=== PATIENT | female | born 1965 | race Caucasian/White ===

== ENCOUNTER 2025-04-08 11:09 | Outpatient (AMB) | payer OTHER, SELFPAY ==
--- OUTSIDE RECORDS SUMMARY | 2025-04-08 12:42 | XMS_ITS | Clinical Summary ---
Author Organization [facility] Address [address] [place] [address] Care Team Providers Care Vision Specialist Name Role Phone Jairo Patel DO Primary Care Provider [phone] Allergies Active Allergy Reactions Criticality Noted Date Comments Hydromorphone 06/17/2024 Nitrofurantoin 06/17/2024 Morphine 06/17/2024 Penicillins 06/17/2024 Oxycodone-Acetaminophen 06/17/2024 Medications Medication Sig Dispensed Refills Start Date End Date Status aspirin EC 81 MG tablet Take 1 tablet (81 mg total) by mouth daily. 0 Active loratadine (CLARITIN) 10 MG tablet Take 1 tablet (10 mg total) by mouth daily. 0 Active Ubrogepant (Ubrelvy) 100 MG TABS Take by mouth. 0 Active atorvastatin (LIPITOR) tablet 10 mg Take 1 tablet (10 mg total) by mouth every evening. 0 Active alendronate (FOSAMAX) tablet 70 mg Take 1 tablet (70 mg total) by mouth every 7 days. Take with water on empty stomach/Nothing by mouth and do not lie down for next 30 minutes 0 Active vitamin B-12 (CYANOCOBALAMIN) 100 MCG tablet Take 0.5 tablets (50 mcg total) by mouth daily. 0 Active senna (SENOKOT) 8.6 MG tablet Take 1 tablet by mouth daily. 0 Active baclofen (LIORESAL) 10 MG tablet Take 1 tablet (10 mg total) by mouth 2 (two) times a day. 0 Active Calcium Citrate (CITRACAL PO) Take by mouth. 0 Active erenumab-aooe (Aimovig) SOAJ Inject under the skin once. 0 Active Active Problems No known active problems Social History Tobacco Use Types Packs/Day Years Used Date Smoking Tobacco: Former Cigarettes Smokeless Tobacco: Never Tobacco Cessation:Counseling Given: Not Answered Alcohol Use Standard Drinks/Week Comments Yes 0 (1 standard drink = 0.6 oz pur e alcohol) 4oz pascual a day Sex and Gender Information Value Date Recorded Sex Assigned at Female 05/17/2022 4:16 PM EDT Gender Identity Not on file Sexual Orientation Not on file Job Start Date Occupation Industry Not on file Not on file Not on file Last Filed Vital Signs Vital Sign Reading Time Taken Comments Blood Pressure 109/62 06/17/2024 2:01 PM EDT Pulse 75 06/17/2024 2:01 PM EDT Temperature 37.4 C (99.4 F) 06/17/2024 2:01 PM EDT Respiratory Rate - - Oxygen Saturation 99% 06/17/2024 2:01 PM EDT Inhaled Oxygen Concentration - - Weight 43.1 kg (95 lb) 06/17/2024 2:01 PM EDT Height 167.6 cm (5' 6 ) 06/17/2024 2:01 PM EDT Body Mass Index 15.33 06/17/2024 2:01 PM EDT Plan of Treatment Health Maintenance Due Date Last Done Comments Hepatitis B Vaccines (1 of 3 - 3-dose series) 1966 Hepatitis C Screening 1966 COVID-19 Vaccine (#1) 06/23/1967 Depression Screening 1978 Preventative Health Evaluation 1984 DTap / Tdap / Td (1 - Tdap) 1985 Cervical Cancer Screening (P ap Smear) 12/22/1987 Colon Cancer Screening (Colonoscopy) 12/22/2011 Breast Cancer Screening (Mammogram) 2016 Shingrix-Zoster Vaccine (1 of 2) 2016 Influenza Vaccine (#1) 2025 Pneumococcal Vaccine Aged Out No long er eligible based on patient's age to complete this topic RSV Ped < 20 months Aged Out No longe r eligible based on patient's age to complete this topic Care Teams Vision Specialist Relationship Specialty Start Date End Date Jairo Patel DO [address] [place] [address] [place] [address] PCP - General Internal Medicine 05/17/22
--- OUTSIDE RECORDS SUMMARY | 2025-04-08 12:42 | XMS_ITS | Encounter Summary ---
Author Organization [employer] [facility] Address [address] [place] [address] Care Team Providers Care Trauma Doctor Name Role Phone Jairo Patel DO Primary Care Provider [phone] Encounter Details Date Type Department Care Team (Late st Contact Info) Description 02/10/2025 Lab Requisition [facility] - Main Lab [address] [facility] [place] [address] Angel Frank MD [address] [place], [place] [phone] Urinary tract infection, site not specified; Overactive bladder Social History Tobacco Use Types Packs/Day Years [...] on file documented as of this encounter Plan of Treatment Not on file documented as of this encounter Procedures Procedure Name Priority Date/Time Associated Diagnosis Comments CULTURE URINE Routine 02/10/2025 12:00 AM EDT Urinary tract infection, site not specified Overactive bladder documented in this encounter Results * Culture urine (02/10/2025 12:00 AM EDT) Culture, Urine No growth 02/11/2025 10:59 AM EDT [facility] Urine Urine specimen obtained by clean catch procedure / Unknown 02/10/2025 02/10/2025 1:24 PM EDT us Angel Frank MD LAB MICROBIOLOGY - GENERAL ORDERABLES Final [facility] [address] [place] [address], documented in this encounter Visit Diagnoses Diagnosis Urinary tract infection, site not specified Overactive bladder Hypertonicity of bladder documented in this encounter Care Teams Trauma Doctor Relationship Specialty Start Date End Date Jairo Patel DO [address] [place] [phone] PCP - General Internal Medicine 03/27/13 documented as of this encounter
--- OUTSIDE RECORDS SUMMARY | 2025-04-08 12:42 | XMS_ITS | Clinical Summary ---
Author Organization [facility] Address [address] [place] [address] Care Team Providers Care Technician Inventory Specialist Name Role Phone Jairo Patel Primary Care Provider [phone] Allergies Active Allergy Reactions Criticality Noted Date Comments Hydromorphone Unknown 08/03/2023 Lactose Unknown 08/03/2023 Nitrofurantoin Unknown 08/03/2023 Oxycodone-Acetaminophen Unknown 08/03/2023 Penicillins Unknown 08/03/2023 Medications aspirin 81 mg EC tablet Take 1 tablet by mouth once a day. Active propranoloL (INDERAL) 10 mg tablet Take 5 mg by mouth 2 times a day. Active atorvastatin (LIPITOR) 10 mg tablet Take 5 mg by mouth nightly. 3 Active alendronate (FOSAMAX) 70 mg tablet Take 70 mg by mouth once a week. 3 Active cyanocobalamin (vitamin B-12) 500 mcg tablet Take 500 mcg by mouth once a day. 3 Active butalbital-acetamin ophen-caffeine (FIORICET) 50-325-40 mg tablet Take 1 tablet by mouth as needed for headache or migraine. Active Nurtec ODT 75 mg tablet,disintegrati ng disintegrating tablet Dissolve 75 mg in the mouth every other day. Active senna (Senna Lax) 8.6 mg tablet Take 100 mg by mouth every other day. 3 Active calcium citrate/vitamin D3 (CITRACAL REGULAR ORAL) Take 650 mg by mouth once a day. 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 Social History Tobacco Use Types Packs/Day Years Used Date Smoking Tobacco: Former Cigarettes Smokeless Tobacco: Never Tobacco Cessation:Counseling Given: Not Answered Alcohol Use Standard Drinks/Week Comments Yes 0 (1 standard drink = 0.6 oz pur e alcohol) Comments Unknown Sex and Gender Information Value Date Recorded Sex Assigned at Not on file Legal Sex Female 11:29 AM EDT Gender Identity Not on file Sexual Orientation Not on file Last Filed Vital Signs Vital Sign Reading Time Taken Comments Blood Pressure 118/75 08/03/2023 9:34 AM EST Pulse 88 08/03/2023 9:34 AM EST Temperature 36.2 C (97.2 F) 08/03/2023 9:34 AM EST Respiratory Rate 16 08/03/2023 9:34 AM EST Oxygen Saturation - - Inhaled Oxygen Concentration - - Weight - - Height 167.6 cm (5' 6 ) 08/03/2023 9:34 AM EST Body Mass Index - - Plan of Treatment Health Maintenance Due Date Last Done Comments Cervical Cancer Screening 1966 Cologuard 1966 Colon Cancer Screening 1966 Colonoscopy 1966 FOBT / Fit Test 1966 HIV Screening 1966 HPV and Pap Smear 1966 Hepatitis C Screening 1966 Pap Smear 1966 Sigmoidoscopy 1966 Hepatitis B Vaccines (1 of 3 - 19+ 3-dose series) 1985 DTaP,Tdap,and Td Vaccines (1 - Tdap) [address] Lung Cancer Screening (Baseline) 2016 Pneumococcal Vaccine: 50+ Ye ars (1 of 1 - PCV) 2016 Zoster Vaccines (2 of 2) 06/25/2023 04/30/2023 COVID-19 Vaccine (2 - 2023-2 5 season) 2024 10/08/2020 Alcohol/Substance Use Screening 08/21/2024 Depression Screening and Follow-Up 08/21/2024 Social Drivers of Health Jessica ual Screening 08/21/2024 Influenza Vaccine (#1) 2025 3, 06/14/2022, 08/19/2021, Additional history exists RSV Vaccine (60+ years old a nd patients) (1 - 1-dose 75+ series) 2041 Insurance [facility] OUT OF STATE PPO MEDICARE Care Teams Technician Inventory Specialist Relationship Specialty Start Date End Date Jairo Patel [address] [place] [phone] PCP - General Internal Medicine 06/08/23
== END 2025-04-08 11:13 | disposition home or self-care (01) ==
LOC: HO.HMGAL 11:09
PROVIDERS: Visit Provider Registered Nurse Emergency
DX: J30.89 Other allergic rhinitis (principal)
CPT/HCPCS: 95117; 95165

== ENCOUNTER 2025-05-07 13:29 | Outpatient (AMB) | payer OTHER, BC, SELFPAY ==
--- OUTSIDE RECORDS SUMMARY | 2025-05-07 17:19 | XMS_ITS | Clinical Summary ---
Author Organization [facility] Address [address] [place] [address] Care Team Providers Care Rack Washer Name Role Phone Jairo Patel Primary Care Provider [phone] Allergies Active Allergy Reactions Criticality Noted Date [...] Zoster Vaccines (2 of 2) 06/25/2023 04/30/2023 Alcohol/Substance Use Screening 08/21/2024 Depression Screening and Follow-Up 08/21/2024 Social Drivers of Health Jessica ual Screening 08/21/2024 COVID-19 Vaccine (2 - 2024-2 6 season) 2025 10/08/2020 Influenza Vaccine (#1) 2025 3, 06/14/2022, 08/19/2021, Additional history exists RSV Vaccine (60+ years old a nd patients) (1 - 1-dose 75+ series) 2041 Insurance [facility] OUT OF STATE O MEDICARE Care Teams Rack Washer Relationship Specialty Start Date End Date Jairo Patel [address] [place] [id number] PCP - General Internal Medicine 06/08/23
--- OUTSIDE RECORDS SUMMARY | 2025-05-07 17:20 | XMS_ITS | Clinical Summary ---
Author Organization [facility] Address [address] [place] [address] Care Team Providers Care Channel Program Manager Name Role Phone Jairo Patel DO Primary Care Provider [phone] Allergies Active Allergy Reactions Criticality Noted Date [...] age to complete this topic Care Teams Channel Program Manager Relationship Specialty Start Date End Date Jairo Patel DO [address] [place] [address] [place] [address] PCP - General Internal Medicine 05/17/22
== END 2025-05-07 13:30 | disposition home or self-care (01) ==
LOC: HO.HMGAL 13:29
PROVIDERS: Visit Provider Registered Nurse Emergency
DX: J30.89 Other allergic rhinitis (principal)
CPT/HCPCS: 95117; 95165

== ENCOUNTER 2025-06-04 12:05 | Outpatient (AMB) | payer BC, MEDICARE, SELFPAY ==
--- OUTSIDE RECORDS SUMMARY | 2024-06-17 13:42 | XMS_ITS | Encounter Summary ---
Author Organization [facility] Address [address] [place] [address] Care Team Providers Care Tennis Centre Manager Name Role Phone Jairo Patel DO Primary Care Provider [phone] Encounter Details Date Type Department Care Team (Late st Contact Info) Description 06/17/2024 1:42 PM EDT Hospital Encounter TH HISTORIC ENCOUNTERS EASTERN CONVERSION ONLY Justus Byrnes MD [address] [place] [address] Social History Tobacco Use Types Packs/Day Years [...] [facility]. Patient [...] significant anemia but she was told [facility] to take multivitamin because she may have [...] documented in this encounter Plan of Treatment Upcoming Encounters Date Type Department Care Team (Late st Contact Info) Description 06/17/2025 1:45 PM EDT Office Visit [facility] Hematology Oncology [address] [place] [phone] Justus Byrnes MD [address] [place] [address] documented as of this encounter Procedures Procedure Name Priority Date/Time Associated Diagnosis Comments ..MISCELLANEOUS REFERENCE LAB TEST 06/17/2024 ..MISCELLANEOUS REFERENCE LAB TEST 06/17/2024 ..MISCELLANEOUS REFERENCE LAB TEST 06/17/2024 ..MISCELLANEOUS REFERENCE LAB TEST 06/17/2024 documented in this encounter Results * Miscellaneous reference lab test (06/17/2024) Provider Onbase MD LAB BLOOD ORDERABLES Final Re sult * Miscellaneous reference lab test (06/17/2024) Provider Onbase MD LAB BLOOD ORDERABLES Final Re sult * Miscellaneous reference lab test (06/17/2024) Provider Onbase MD LAB BLOOD ORDERABLES Final Re sult * Miscellaneous reference lab test (06/17/2024) Provider Onbase MD LAB BLOOD ORDERABLES Final Re sult documented in this encounter Visit Diagnoses Not on filedocumented in this encounter Care Teams Tennis Centre Manager Relationship Specialty Start Date End Date Jairo Patel DO [address] [place] [phone] PCP - General Internal Medicine 03/27/13 documented as of this encounter
--- OUTSIDE RECORDS SUMMARY | 2025-06-04 15:18 | XMS_ITS | Clinical Summary ---
Author Organization [facility] Address [address] [place] [address] Care Team Providers Care Director Web Name Role Phone Jairo Patel Primary Care Provider [phone] Allergies Active Allergy Reactions Criticality Noted Date [...] (1 - 1-dose 75+ series) 2041 Insurance [facility] OUT OF STATE O MEDICARE Care Teams Director Web Relationship Specialty Start Date End Date Jairo Patel [address] [place] [phone] PCP - General Internal Medicine 06/08/23
--- OUTSIDE RECORDS SUMMARY | 2025-06-04 15:18 | XMS_ITS | Encounter Summary ---
Author Organization [facility] Address [address] [place] [address] Care Team Providers Care Speech Clinician Name Role Phone Jairo Patel DO Primary Care Provider [phone] Encounter Details Date Type Department Care Team (Late Contact Info) Description 05/27/2025 Lab Requisition [facility] - Main Lab [address] [facility] [place] [phone] Dangelo Shields MD [address] [place] [phone] Benign essential microscopic hematuria Social History Tobacco Use Types Packs/Day Years [...] as of this encounter Plan of Treatment Upcoming Encounters Date Type Department Care Team (Late Contact Info) Description 06/17/2025 1:45 PM EDT Office Visit [facility] Hematology Oncology [address] [place] [phone] Justus Byrnes MD [address] [place] [address] Pending Results Name Type Priority Associated Diagnoses Date /Time Non-gynecologic cytology Pathology and Cytology Routine Benign essential microscopic hematuria 05/20/2025 12:00 AM EDT documented as of this encounter Visit Diagnoses Diagnosis Benign essential microscopic hematuria documented in this encounter Care Teams Speech Clinician Relationship Specialty Start Date End Date Jairo Patel DO [address] [place] [phone] PCP - General Internal Medicine 03/27/13 documented as of this encounter
--- OUTSIDE RECORDS SUMMARY | 2025-06-04 15:18 | XMS_ITS | Clinical Summary ---
Author Organization [facility] Address [address] [place] [address] Care Team Providers Care Mosaic Tile Maker Name Role Phone Jairo Patel DO Primary Care Provider [phone] Allergies Active Allergy Reactions Criticality Noted Date [...] age to complete this topic Care Teams Mosaic Tile Maker Relationship Specialty Start Date End Date Jairo Patel DO [address] [place] [address] [place] [address] PCP - General Internal Medicine 05/17/22
--- OUTSIDE RECORDS SUMMARY | 2025-06-04 15:18 | XMS_ITS | Encounter Summary ---
Author Organization [employer] [facility] Address [address] [place] [address] Care Team Providers Care Safety Relief Valve Technician Name Role Phone Jairo Patel DO Primary Care Provider [phone] Encounter Details Date Type Department Care Team (Late Contact Info) Description 02/10/2025 Lab Requisition [facility] - Main Lab [address] [facility] [place] [phone] Angel Frank MD [address] [place] [address] Urinary tract infection, site not specified; Overactive [...] Description 06/17/2025 1:45 PM EDT Office Visit [facility] Hematology Oncology [address] [place] [phone] Justus Byrnes MD [address] [place] [address] documented as of this encounter Procedures Procedure Name Priority Date/Time Associated Diagnosis Comments CULTURE URINE Routine 02/10/2025 12:00 AM EDT Urinary tract infection, site not specified Overactive bladder documented in this encounter Results * Culture urine (02/10/2025 12:00 AM EDT) Culture, Urine No growth 02/11/2025 10:59 AM EDT [facility] Urine Urine specimen obtained by clean catch procedure / Unknown 02/10/2025 02/10/2025 1:24 PM EDT us Angel Frank MD LAB MICROBIOLOGY - GENERAL ORDERABLES Final Result [facility] [address] [place] [address], documented in this encounter Visit Diagnoses Diagnosis Urinary tract infection, site not specified Overactive bladder Hypertonicity of bladder documented in this encounter Care Teams Safety Relief Valve Technician Relationship Specialty Start Date End Date Jairo Patel DO [address] [place] [phone] PCP - General Internal Medicine 03/27/13 documented as of this encounter
--- OUTSIDE RECORDS SUMMARY | 2025-06-04 15:18 | XMS_ITS | Clinical Summary ---
Author Organization [facility] [place] [address] Phone Care Team Providers Care Tile Power Shear Operator Name Role Phone Jairo Patel DO Primary Care Provider [phone] Encounters Date Type Department Care Team Description 05/27/2025 Lab Requisition [facility] - Main Lab [address] [facility] [place] [address] Dangelo Shields MD Benign essential microscopic hematuria from Last 3 Months Social History Tobacco Use Types Packs/Day Years Used Date Smoking Tobacco: Former Smokeless Tobacco: Never Alcohol Use Standard Drinks/Week Comments Yes 0 (1 standard drink = 0.6 oz pur e alcohol) Comments Unknown Sex and Gender Information Value Date Recorded Sex Assigned at Not on file Legal Sex Female 7:00 AM EST Gender Identity Not on file Sexual Orientation Not on file Obstetrics History Last Filed Vital Signs Vital Sign Reading [...] 06/17/2024 2:01 PM EDT Plan of Treatment Upcoming Encounters Date Type Department Care Team (Late st Contact Info) Description 06/17/2025 1:45 PM EDT Office Visit [facility] [address] [place] [address] Justus Byrnes MD [address] [place] [address] Health Maintenance Due Date Last Done Comments Breast Cancer Screening 1966 Colorectal Cancer Screening: Colonoscopy 1966 DTaP,Tdap,and Td Vaccines (1 - Tdap) 1985 Hepatitis B Vaccines (1 of 3 - 19+ 3-dose series) 1985 Cervical Cancer Screening: Pap Smear 12/22/1987 Pneumococcal Vaccine: 50+ Years (1 of 1 - PCV) 2016 HIV Screening 07/24/2022 Hepatitis C Screening 07/24/2022 Medicare Annual Wellness Visit 07/24/2022 Social Influencers of Health Screening 07/24/2022 Depression Screening 08/21/2024 COVID-19 Vaccine ( - season) 2025 10/08/2020 Influenza Vaccine (#1) 2025 , 05/26/2023, 06/14/2022, Additional history exists Cholesterol Screening (Lipid Panel) 11/06/2029 11/06/2024 RSV Immunization Adult Patients (1 - 1-dose 75+ series) 2041 Zoster Vaccines Completed 08/05/2023, 04/30/2023 HIB Vaccines Aged Out No longer eligi ble based on patient's age to complete this topic HPV Vaccines Aged Out No longer eligi ble based on patient's age to complete this topic Hepatitis A Vaccines Aged Out No long er eligible based on patient's age to complete this topic IPV Vaccines Aged Out No longer eligi ble based on patient's age to complete this topic MMR Vaccines Aged Out No longer eligi ble based on patient's age to complete this topic Meningococcal ACWY Vaccine Aged Out N o longer eligible based on patient's age to complete this topic Meningococcal B Vaccine Aged Out No l onger eligible based on patient's age to complete this topic RSV Immunization Patients Under 20 months Aged Out No longer eligible based on patient's age to complete this topic Varicella Vaccines Aged Out No longer eligible based on patient's age to complete this topic Procedures Procedure Name Priority Date/Time Associated Diagnosis Comments BILIRUBIN DUPLICATE PROCEDURE TO ORDER Routine 05/16/2025 9:25 AM EDT Weight loss Abdominal pain CBC WITH AUTO DIFFERENTIAL Routine 05/16/2025 9:25 AM EDT Weight loss Abdominal pain LIPASE Routine 05/16/2025 9:25 AM EDT Weight loss Abdominal pain VITAMIN B12 Routine 05/16/2025 9:25 AM EDT Weight loss Abdominal pain STEPHANI IFA WITH TITER AND PATTERN Routine 05/16/2025 9:25 AM EDT Weight loss Abdominal pain AMYLASE Routine 05/16/2025 9:25 AM EDT Weight loss Abdominal pain COMPREHENSIVE METABOLIC PANEL Routine 05/16/2025 9:25 AM EDT Weight loss Abdominal pain CBC AND DIFFERENTIAL Routine 05/16/2025 9:25 AM EDT Weight loss Abdominal pain THYROID STIMULATING HORMONE Routine 05/16/2025 9:25 AM EDT Weight loss Abdominal pain VITAMIN B12 Routine 05/08/2025 9:08 AM EDT Low vitamin B12 level LIPID PANEL WITH REFLEX TO DIRECT LDL Routine 11/06/2024 11:46 AM EDT Borderline hyperlipidemia IGT (impaired glucose tolerance) Weight loss Dysosmia from Last 3 Months or Most Recently Relevant to Health Maintenance Results * Bilirubin duplicate procedure to order (05/16/2025 9:25 AM EDT) Total Bilirubin 0.4 0.0 - 1.4 mg/dL LAB CHEMISTRY METHOD 05/16/2025 2:07 PM EDT [facility] Bilirubin, Direct 0.1 0.0 - 0.3 mg/dL LAB CHEMISTRY METHOD 05/16/2025 2:07 PM EDT [facility] Bilirubin, Indirect 0.3 0.0 - 1.1 mg/dL LAB CHEMISTRY METHOD 05/16/2025 2:07 PM EDT [facility] Blood Venous blood specimen / Unknown Venipuncture / Unknown 05/16/2025 9:25 AM EDT 05/16/2025 9:25 AM EDT [facility] [place] BLOOD ORDERABLES Final Re sult Performing Organization Address [facility]/ZIP Co de Phone Number [facility] [address] [place] [address], [place] [phone] * (ABNORMAL) STEPHANI IFA with titer and pattern (05/16/2025 9:25 AM EDT) STEPHANI Positive (A) Negative 05/19/2025 2:16 PM EDT [facility] Comment:STEPHANI performed by ind irect immunofluorescence (IFA) using HEp-2 substrate. STEPHANI Pattern Homogene ous(A) (none) 05/19/2025 2:16 PM EDT [facility] Comment: May be Associated with SLE and drug-induced SLE. If clinical suspicion of SLE consider testing for anti-dsDNA and anti-Sm. If established SLE to assess disease activity and/or prognosis, consider testing for anti-dsDNA. If clinical suspicion of drug induced LE no further testing is indicated. Titer 1:640(A) <1:160 05/19/2025 2:16 PM EDT [facility] Blood Venous blood specimen / Unknown Venipuncture / Unknown 05/16/2025 9:25 AM EDT 05/16/2025 9:25 AM EDT [facility] BLOOD ORDERABLES Final Re sult Performing Organization Address City/[facility]/ZIP Co de Phone Number [facility] [address] [place] [address], [place] [phone] * (ABNORMAL) CBC auto differential (05/16/2025 9:25 AM EDT) WBC 4.5(L) 4.8 - 10.8 K/mcL LAB HEMETOLOGY METHOD 05/16/2025 11:35 AM [facility] RBC 3.80 3.80 - 4.80 M/mcL LAB HEMETOLOGY METHOD 05/16/2025 11:35 AM [facility] Hemoglobin 13.0 11.5 - 16.0 g/dL LAB HEMETOLOGY METHOD 05/16/2025 11:35 AM [facility] Hematocrit 39.2 35.0 - 47.0 % LAB HEMETOLOGY METHOD 05/16/2025 11:35 AM [facility] MCV 102.9(H) 79.0 - 98.0 FL LAB HEMETOLOGY METHOD 05/16/2025 11:35 AM [facility] MCH 34.1(H) 27.0 - 32.0 pcg LAB HEMETOLOGY METHOD 05/16/2025 11:35 AM [facility] MCHC 33.2 32.0 - 37.0 g/dL LAB HEMETOLOGY METHOD 05/16/2025 11:35 AM [facility] RDW 12.1 11.0 - 15.0 % LAB HEMETOLOGY METHOD 05/16/2025 11:35 AM [facility] Platelets 247 130 - 400 K/mcL LAB HEMETOLOGY METHOD 05/16/2025 11:35 AM [facility] MPV 10.1 7.0 - 11.0 FL LAB HEMETOLOGY METHOD 05/16/2025 11:35 AM [facility] NRBC 0.0 <1.0 % LAB HEMETOLOGY METHOD 05/16/2025 11:35 AM [facility] NRBC Absolute 0.00 <0.10 K/mcL LAB HEMETOLOGY METHOD 05/16/2025 11:35 AM [facility] Neutrophils Relative 41.9 % LAB HEMETOLOGY METHOD 05/16/2025 11:35 AM [facility] Lymphocytes Relative 38.1 % LAB HEMETOLOGY METHOD 05/16/2025 11:35 AM [facility] Monocytes Relative 14.9 % LAB HEMETOLOGY METHOD 05/16/2025 11:35 AM [facility] Eosinophils Relative 4.2 % LAB HEMETOLOGY METHOD 05/16/2025 11:35 AM [facility] Basophils Relative 0.9 % LAB HEMETOLOGY METHOD 05/16/2025 11:35 AM [facility] Immature Granulocytes Relative 0.0 % LAB HEMETOLOGY METHOD 05/16/2025 11:35 AM [facility] Neutrophils Absolute 1.89 1.50 - 7.00 K/mcL LAB HEMETOLOGY METHOD 05/16/2025 11:35 AM [facility] Lymphocytes Absolute 1.72 1.00 - 5.00 K/mcL LAB HEMETOLOGY METHOD 05/16/2025 11:35 AM [facility] Monocytes Absolute 0.67 0.20 - 1.00 K/mcL LAB HEMETOLOGY METHOD 05/16/2025 11:35 AM [facility] Eosinophils Absolute 0.19 0.00 - 0.50 K/mcL LAB HEMETOLOGY METHOD 05/16/2025 11:35 AM [facility] Basophils Absolute 0.04 0.00 - 0.20 K/mcL LAB HEMETOLOGY METHOD 05/16/2025 11:35 AM [facility] Immature Granulocytes Absolute 0.00 0.00 - 0.03 K/mcL LAB HEMETOLOGY METHOD 05/16/2025 11:35 AM [facility] Blood Venous blood specimen / Unknown Venipuncture / Unknown 05/16/2025 9:25 AM EDT 05/16/2025 9:25 AM EDT [facility] BLOOD ORDERABLES Final Re sult Performing Organization Address [facility] Co de Phone Number [facility] [address] [place] [address], [place] [phone] * Thyroid stimulating hormone (05/16/2025 9:25 AM EDT) [facility] TSH 1.94 0.40 - 4.00 mcIU/mL LAB CHEMISTRY METHOD 05/16/2025 2:46 PM EDT [facility] Blood Venous blood specimen / Unknown Venipuncture / Unknown 05/16/2025 9:25 AM EDT 05/16/2025 9:25 AM EDT [facility] BLOOD ORDERABLES Final Re sult Performing Organization Address [facility] Co de Phone Number [facility] [address] [place] [address], [place] [phone] * Lipase (05/16/2025 9:25 AM EDT) [facility] Lipase 50 13 - 75 unit/L LAB CHEMISTRY METHOD 05/16/2025 2:07 PM EDT [facility] Blood Venous blood specimen / Unknown Venipuncture / Unknown 05/16/2025 9:25 AM EDT 05/16/2025 9:25 AM EDT [facility] BLOOD ORDERABLES Final Re sult Performing Organization Address City/[facility]/ZIP Co de Phone Number [facility] [address] [place] [address], [place] [phone] * Vitamin B12 (05/16/2025 9:25 AM EDT) Only the most recent of2 resultswithin the time period is included. [facility] Vitamin B-12 484 250 - 900 pcg/mL LAB CHEMISTRY METHOD 05/16/2025 2:07 PM EDT [facility] Blood Venous blood specimen / Unknown Venipuncture / Unknown 05/16/2025 9:25 AM EDT 05/16/2025 9:25 AM EDT [facility] BLOOD ORDERABLES Final Re sult Performing Organization Address City/[facility]/ZIP Co de Phone Number [facility] [address] [place] [address], [place] [phone] * Amylase (05/16/2025 9:25 AM EDT) [facility] Amylase 99 25 - 115 unit/L LAB CHEMISTRY METHOD 05/16/2025 2:07 PM EDT [facility] Blood Venous blood specimen / Unknown Venipuncture / Unknown 05/16/2025 9:25 AM EDT 05/16/2025 9:25 AM EDT [facility] BLOOD ORDERABLES Final Re sult Performing Organization Address City/[facility]/ZIP Co de Phone Number [facility] [address] [place] [address], [place] [phone] * (ABNORMAL) Comprehensive metabolic panel (05/16/2025 9:25 AM EDT) [facility] Sodium 138 133 - 145 mmol/L LAB CHEMISTRY METHOD 05/16/2025 2:07 PM EDT [facility] Potassium 4.0 3.5 - 5.5 mmol/L LAB CHEMISTRY METHOD 05/16/2025 2:07 PM EDT [facility] Chloride 106 96 - 110 mmol/L LAB CHEMISTRY METHOD 05/16/2025 2:07 PM EDT [facility] CO2 27 21 - 32 mmol/L LAB CHEMISTRY METHOD 05/16/2025 2:07 PM [facility] Anion Gap 5 3 - 11 LAB CHEMISTRY METHOD 05/16/2025 2:07 PM [facility] Glucose 82 70 - 100 mg/dL LAB CHEMISTRY METHOD 05/16/2025 2:07 PM [facility] BUN 15 5 - 25 mg/dL LAB CHEMISTRY METHOD 05/16/2025 2:07 PM [facility] Creatinine 0.78 0.50 - 1.10 mg/dL LAB CHEMISTRY METHOD 05/16/2025 2:07 PM [facility] eGFR 88 >=60 mL/min/1. 73m2 LAB CHEMISTRY METHOD 05/16/2025 2:07 PM [facility] Comment:Calculation based on the Chronic Kidney Disease Epidemiology Collaboration (CKD-EPI) equation refit without adjustment for race. BUN/Creatinine Ratio 19.2 LAB CHEMISTRY METHOD 05/16/2025 2:07 PM [facility] Calcium 8.9 8.5 - 10.5 mg/dL LAB CHEMISTRY METHOD 05/16/2025 2:07 PM [facility] AST (SGOT) 22 10 - 42 unit/L LAB CHEMISTRY METHOD 05/16/2025 2:07 PM [facility] ALT (SGPT) 30 10 - 60 unit/L LAB CHEMISTRY METHOD 05/16/2025 2:07 PM [facility] Alkaline Phosphatase 39(L) 42 - 121 unit/L LAB CHEMISTRY METHOD 05/16/2025 2:07 PM [facility] Total Protein 6.7 6.0 - 8.0 g/dL LAB CHEMISTRY METHOD 05/16/2025 2:07 PM [facility] Albumin 4.1 3.2 - 5.0 g/dL LAB CHEMISTRY METHOD 05/16/2025 2:07 PM [facility] Total Bilirubin 0.4 0.0 - 1.4 mg/dL LAB CHEMISTRY METHOD 05/16/2025 2:07 PM EDT [facility] Blood Venous blood specimen / Unknown Venipuncture / Unknown 05/16/2025 9:25 AM EDT 05/16/2025 9:25 AM EDT us Jairo Patel DO LAB BLOOD ORDERABLES Final Re sult [facility] [address] [place] [address], [place] [phone] * Lipid panel with reflex to direct LDL (11/06/2024 11:46 AM EDT) Cholesterol 183 0 - 200 mg/dL LAB CHEMISTRY METHOD 11/06/2024 4:35 PM EDT [facility] Triglycerides 129 0 - 150 mg/dL LAB CHEMISTRY METHOD 11/06/2024 4:35 PM EDT [facility] HDL 63 >=40 mg/dL LAB CHEMISTRY METHOD 11/06/2024 4:35 PM EDT [facility] LDL Calculated 94 0 - 100 mg/dL LAB CHEMISTRY METHOD 11/06/2024 4:35 PM EDT [facility] VLDL Cholesterol [place] 25.8 mg/dL LAB CHEMISTRY METHOD 11/06/2024 4:35 PM EDT [facility] Non HDL Chol. (LDL+VLDL) 120 <145 mg/dL LAB CHEMISTRY METHOD 11/06/2024 4:35 PM EDT [facility] Chol/HDL Ratio 2.9 0.0 - 4.4 LAB CHEMISTRY METHOD 11/06/2024 4:35 PM EDT [facility] Blood Venous blood specimen / Unknown Venipuncture / Unknown 11/06/2024 11:46 AM EDT 11/06/2024 11:46 AM EDT Jairo Patel DO LAB BLOOD ORDERABLES Final Re sult [facility] [address] [place] [address], from Last 3 Months or Most Recently Relevant to Health Maintenance Insurance MEDICARE [facility] Care Teams Tile Power Shear Operator Relationship Specialty Start Date End Date Jairo Patel DO [address] [place] [phone] PCP - General Internal Medicine 03/27/13
== END 2025-06-04 12:06 | disposition home or self-care (01) ==
LOC: HO.HMGAL 12:05
PROVIDERS: PCP Internal Medicine; Visit Provider Registered Nurse Emergency
DX: J30.89 Other allergic rhinitis (principal)
CPT/HCPCS: 95117; 95165

== ENCOUNTER 2025-07-02 11:35 | Outpatient (AMB) | payer BC, MEDICARE, SELFPAY ==
--- OUTSIDE RECORDS SUMMARY | 2024-06-17 12:42 | XMS_ITS | Encounter Summary ---
Author Organization [facility] Address [address] [place] [address] Care Team Providers Care C Winforms Developer Name Role Phone Jairo Patel DO Primary Care Provider [phone] Encounter Details Date Type Department Care Team (Late st Contact Info) Description 06/17/2024 1:42 PM EDT Hospital Encounter TH HISTORIC ENCOUNTERS EASTERN CONVERSION ONLY Justus Byrnes MD [address] [place] [address] Social History Tobacco Use Types Packs/Day Years Used Date Smoking Tobacco: Former Smokeless Tobacco: Never Alcohol Use Standard Drinks/Week Comments Yes 0 (1 standard drink = 0.6 oz pur e alcohol) Comments Unknown Sex and Gender Information Value Date Recorded Sex Assigned at Not on file Legal Sex Female 7:00 AM EST Gender Identity Not on file Sexual Orientation Not on file documented as of this encounter Last Filed Vital Signs Vital Sign Reading Time Taken Comments Blood Pressure 109/62 06/17/2024 2:01 PM EDT Sit ting Left arm Pulse 75 06/17/2024 2:01 PM EDT Temperature - - Respiratory Rate - - Oxygen Saturation - - Inhaled Oxygen Concentration - - Weight 43.1 kg (95 lb) 06/17/2024 2:01 PM EDT Height 167.6 cm (5' 6 ) 06/17/2024 2:01 PM EDT Body Mass Index 15.33 06/17/2024 2:01 PM EDT documented in this encounter Progress Notes * Justus Byrnes MD - 06/17/2024 1:45 PM EDT CHIEF COMPLAINT: Follow-up IDENTIFIER:Nely Antonio is a 58 y.o. female. HPI: 58-year-old female, whom I saw in the past for macrocytosis without any anemia, workup was basically unremarkable, patient apparently has worsening macrocytosis though her hemoglobin is more than 14 g, according to patient's patient has been taking [facility] Patient have significant anorexia and significant weight loss in last few years ROS: Patient has no appetite, has moderate fatigue Patient have significant weight loss in last couple year Patient have no chest pain or pressure Patient denies any significant GI/ symptom Patient denies any significant neurological symptom except chronic headaches PAST MEDICAL HISTORY: Migraine headaches Osteoporosis Stroke/CVA COVID-19 infection Weight loss/nutritional deficiencies ?? SOCIAL HISTORY: She is a former smoker She drinks half a beer at the dinnertime She is lives with her ?? FAMILY HISTORY: Noncontributory Current Outpatient Medications: ??? alendronate (FOSAMAX) tablet 70 mg, Take 1 tablet (70 mg total) by mouth every 7 days. Take with water on empty stomach/Nothing by mouth and do not lie down for next 30 minutes, Disp: , Rfl: ??? aspirin EC 81 MG tablet, Take 1 tablet (81 mg total) by mouth daily., Disp: , Rfl: ??? atorvastatin (LIPITOR) tablet 10 mg, Take 1 tablet (10 mg total) by mouth every evening., Disp:, Rfl: ??? baclofen (LIORESAL) 10 MG tablet, Take 1 tablet (10 mg total) by mouth 2 (two) times a day., Disp: , Rfl: ??? Calcium Citrate (CITRACAL PO), Take by mouth., Disp: , Rfl: ??? erenumab-aooe (Aimovig) SOAJ, Inject under the skin once., Disp: , Rfl: ??? loratadine (CLARITIN) 10 MG tablet, Take 1 tablet (10 mg total) by mouth daily., Disp: , Rfl: ??? senna (SENOKOT) 8.6 MG tablet, Take 1 tablet by mouth daily., Disp: , Rfl: ??? Ubrogepant (Ubrelvy) 100 MG TABS, Take by mouth., Disp: , Rfl: ??? vitamin B-12 (CYANOCOBALAMIN) 100 MCG tablet, Take 0.5 tablets (50 mcg total) by mouth daily., Disp: , Rfl: You are allergic to the following Date Reviewed: 06/17/2024 Allergen Reactions Dilaudid (Hydromorphone) Not Noted Macrobid (Nitrofurantoin) Not Noted Morphine Not Noted Penicillins Not Noted Percocet (Oxycodone-Acetaminophen) Not Noted PHYSICAL EXAM: BP 109/62 (BP Location: Left arm) Pulse 75 Temp 99.4 ??F (37.4 ??C) (Temporal) Ht 5' 6 (1.676 m) Wt 43.1 kg (95 lb) SpO2 99% BMI 15.33 kg/m?? ECOG 0-1 APPEARANCE: Alert and oriented in no acute distress though slightly frail EYES: nonicteric sclera pink conjunctiva ORAL CAVITY: No erythema or exudates NECK: Neck supple, no significant adenopathy, HEART: normal S1 and S2 LUNG: clear to auscultation bilaterally LYMPH NODES: No palpable superficial adenopathy ABDOMEN: soft, nontender and no gross organomegaly appreciated, there is some fullness in upper quadrant EXTREMITIES: no significant edema erythema or tenderness LABS: MCV 106, hemoglobin 14.4 g IMPRESSION: SNOMED CT(R) 1. Macrocytosis MACROCYTOSIS Patient is a 58-year-old female who has macrocytosis without any significant anemia for last few years, patient never had any significant anemia but she was told in [facility] to take multivitamin because she may have vitamin deficiency anemia, I told patient and her her hemoglobin is more than 14 g with MCV of 106 so this macrocytosis could be due to medication, liver dysfunction/alcohol and less likely myeloid disease of the bone marrow, since patient is not symptomatic and does not have any significant anemia, I would not consider bone marrow biopsy etc. PLAN: I will review peripheral smear again and recheck B12 folate liver function etc., if there is any significant abnormality, I will see her back otherwise she does not need any further hematology intervention I would recommend to PCP to have been intervention regarding her significant anorexia like cannabisor Remeron etc. Justus Byrnes MD documented in this encounter Plan of Treatment Not on file documented as of this encounter Procedures Procedure Name Priority Date/Time Associated Diagnosis Comments ..MISCELLANEOUS REFERENCE LAB TEST 06/17/2024 ..MISCELLANEOUS REFERENCE LAB TEST 06/17/2024 ..MISCELLANEOUS REFERENCE LAB TEST 06/17/2024 ..MISCELLANEOUS REFERENCE LAB TEST 06/17/2024 documented in this encounter Results * Miscellaneous reference lab test (06/17/2024) us Provider Onbase MD LAB BLOOD ORDERABLES Final Re sult * Miscellaneous reference lab test (06/17/2024) us Provider Onbase MD LAB BLOOD ORDERABLES Final Re sult * Miscellaneous reference lab test (06/17/2024) us Provider Onbase MD LAB BLOOD ORDERABLES Final Re sult * Miscellaneous reference lab test (06/17/2024) us Provider Onbase MD LAB BLOOD ORDERABLES Final Re sult documented in this encounter Visit Diagnoses Not on filedocumented in this encounter Care Teams C Winforms Developer Relationship Specialty Start Date End Date Jairo Patel DO [address] [place] [phone] PCP - General Internal Medicine 03/27/13 documented as of this encounter
--- OUTSIDE RECORDS SUMMARY | 2025-07-02 14:25 | XMS_ITS | Encounter Summary ---
Author Organization [email or web address] [facility] Address [address] [place] [address] Care Team Providers Care Forest Technician Name Role Phone Jairo Patel DO Primary Care Provider [phone] Encounter Details Date Type Department Care Team (Late st Contact Info) Description 02/10/2025 Lab Requisition [facility] - Main Lab [address] [facility] [place] [address] Angel Frank MD [address] [place], [place] [id number] Urinary tract infection, site not specified; Overactive [...] Urine No growth 02/11/2025 10:59 AM EDT [facility] ([facility]) [facility] Urine Urine specimen obtained by clean catch procedure / Unknown 02/10/2025 02/10/2025 1:24 PM EDT us Angel Frank MD LAB MICROBIOLOGY - GENERAL ORDERABLES Final Result [facility] ([facility]) [facility] [address] [place] [address], documented in this encounter Visit Diagnoses Diagnosis Urinary tract infection, site not specified Overactive bladder Hypertonicity of bladder documented in this encounter Care Teams Forest Technician Relationship Specialty Start Date End Date Jairo Patel DO [address] [place] [phone] PCP - General Internal Medicine 03/27/13 documented as of this encounter
--- OUTSIDE RECORDS SUMMARY | 2025-07-02 14:25 | XMS_ITS | Clinical Summary ---
Author Organization [facility] Address [address] [place] [address] Care Team Providers Care Zipper Trimmer Name Role Phone Jairo Patel DO Primary Care Provider [phone] Allergies Active Allergy Reactions Criticality Noted Date [...] age to complete this topic Care Teams Zipper Trimmer Relationship Specialty Start Date End Date Jairo Patel DO [address] [place] [address] [place] [address] PCP - General Internal Medicine 05/17/22
--- OUTSIDE RECORDS SUMMARY | 2025-07-02 14:25 | XMS_ITS | Data Portability ---
Author Organization [facility] [employer] Address [address] [place] [id number] Care Team Providers Care Grant Manager Name Role Phone BELKIS QUINTEROS Referring Provider Unavailable BELKIS QUINTEROS Primary Care Provider Assessment Encounter Date Assessment Date Assessment LastModified by Organization Details LastModified Time 09/27/2022 09/27/2022 IMPRESSION: --Status post October 30, 2020 stroke with residual symptoms reported of fatigue, word finding difficulty with jumbling words, memory problems and left hand tingling with dropping items. There is also reported worsening of baseline right-sided migraine. When asked, significant worsening of mood and motivation emerged as an additional symptom. --November 30, 2021:Partially improved headache on propranolol 5 mg 10 AM/5:30 PM, context previous worsening headache since April 30, 2021 context previously worsening headache after stroke compared to before stroke, context: --September 27, 2021: Worsened headache ~July 2022 with no clear cause, increase by patient herself from 5 mg propranolol twice daily up to 10 mg propranolol twice daily, emergency room visit for bad headache early August 2021 with low blood pressure found, patient reduction of propranolol down to 5 mg twice a day subsequently, worsened headache continues. Propranolol 5 mg twice daily is not working sufficiently anymore. There is already low blood pressure and possibly side effect with mental slowing noticed by although not by patient. I suggest Semajtesonya a new CGRP inhibitor which may be used every 48 hours as a migraine preventative. She wants a medication with minimal side effects and the only side effect greater than 1% from the clinical trial is 2% nausea. Some of the other CGRP inhibitors have increased risk of constipation and she has significant constipation at baseline. Still other CGRP inhibitors have monthly doses so if there are any side effects they have to be entered for a month. Amitriptyline, Topamax and Depakote may cause cognitive slowing which is in a special risk for this patient's status post stroke but he has forgetfulness and whose cognitive reserve is lessened. Verapamil is another blood pressure medication that may also cause low blood pressure as propranolol has. In these contexts, I think that Nurtec is the right choice. I ask if they wish to stop the propranolol now. She is not having gustavo dizziness or gait abnormality so dangerous side effects are not occurring. Mental slowing that is occurring is subtle so only the notices maybe. If she goes off this propranolol before she starts the Nurtec her headaches may worsen further which will be a problem if the Nurtec does not work ideally. When we go over all of this, she decides to postpone stopping the propranolol at least until after the Nurtec trial. We will remember that her philosophy is to have minimal medications if anything she wants to get rid of medications per discussion documented April discussion: Her finger tingling and feeling of weakness and dropping things bothers her. There is no clear weakness on exam but her feeling of weakness is certainly understandable if cortical interconnections have been damaged from the stroke. Occupational therapy could help the feeling of weakening and may be even the tingling if part of it is from tight muscles from relative reduced use. She reports that her insurance has not paid for occupational therapy because all of the occupational therapists are outside network. I suggest that if they theoretically cover post stroke rehabilitation, I believe it is their duty to either find someone in network for them or to pay for out of network standard of care treatment: Poststroke occupational therapy if the stroke has affected an upper extremity is standard of care. I again suggested that they look for a telehealth case manager or cna caregiver at the insurance company to guide them through the bureaucracy of the insurance company, as discussed initially April 30, 2021. ANASTACIA Antonio September 27, 2022 We will find imaging and emergency room discharge notes from early August 2022 emergency room visit CONTINUE propranolol 10 mg tablets, 1/2 tablet twice a day For migraine prevention: ONE 75 mg tablet every other day Do not take more than once in 48 hours. I am giving you 8 sample tablets, a 16-day supply. I will have you follow-up in 1 month. Please keep records of how your headaches are doing during the 16 days on Nurtec versus the 2 weeks off of Nurtec. Possible serious side effects include serious hypersensitivity reaction such as rash and shortness of breath, although occurring in less than 1% of patients. This can potentially happen up to several days after dosing. Other possible side effects include nausea, in about 2% of patients, compared to 0.4% of patients with placebo. A small number of prescription medications are CY inhibitors and could increase the blood level of Nurtec and increase the risk of side effects such as nausea. Examples include diltiazem, verapamil, phenobarbital, phenytoin glucocorticoids. If a healthcare provider wishes to start one of these medications, there should be close monitoring for nausea. Ysyh-plz-jyiglih treatments or foods that are strong CYP three A4 inhibitors include [place]'s wort, large amounts of grapefruit juice, turmeric or curcumin. Please avoid large amounts of grapefruit juice, turmeric. Follow-up in 4 weeks Angel Tobin MD, PhD [facility] Not available 09/27/2022 15:19:29 10/18/2022 10/18/2022 IMPRESSION: --Status post October 30, 2020 stroke with residual symptoms reported of fatigue, word finding difficulty with jumbling words, memory problems and left hand tingling with dropping items. There is also reported worsening of baseline right-sided migraine. When asked, significant worsening of mood and motivation emerged as an additional symptom. --November 30, 2021:Partially improved headache on propranolol 5 mg 10 AM/5:30 PM, context previous worsening headache since April 30, 2021 context previously worsening headache after stroke compared to before stroke, context: --September 27, 2021: Worsened headache ~July 2022 with no clear cause, increase by patient herself from 5 mg propranolol twice daily up to 10 mg propranolol twice daily, emergency room visit for bad headache early August 2021 with low blood pressure found, patient reduction of propranolol down to 5 mg twice a day subsequently, worsened headache continues. --October 18, 2022 Nurtec 75 mg doses headache frequency by 50% without side effects Both patient and were uncertain of the [facility] discharge diagnosis of her worsening of previous stroke symptoms and her persistent left hand tingling in the context of 2 days of migraine. We reviewed imaging and discharge summary from that time: DATA REVIEW IMAGING Brain MRI August 27, [address] and CTA of head August 25, 2022 per dictation [facility] neuroradiology: Small right MCA territory chronic infarction; reflected by right insula, lateral temporal, lateral parietal, postcentral gyrus and right periatrial white matter chronic encephalomalacia with petechial hemosiderin staining. Mild scattered foci of T2/FLAIR increased signal subcortical and deep white matter. CHART NOTES [facility] discharge summary, Anton, admission August 25, 2022 context October 2021 stroke with residual left-sided weakness but worse for 2 weeks with 1 day of left hand numbness; 2-day migraine had been ongoing. Also, chronic abdominal pain noted. Hospital course per chart: Includes initial lab work not concerning for any acute abnormality CT head, CT angio neck and head were negative for anything acute. Brain MRI was negative for anything acute. Presumptive diagnosis context neurology consultation was that her worsening was likely record essence of her residual stroke symptoms in the setting of migraine that had been ongoing for 2 days. I explained how the [facility] diagnosis was plausible for her worsening of previous chronic stroke symptoms as physical stress such as a bad migraine is known to do that. Separately, her continuing left hand tingling may be myofascial. She is on telemedicine now so I do not have time to demonstrate that and to differentiate from something else that might be going on such as radiculopathy. There was no injury to make radiculopathy more likely. MIGRAINE Nurtec 75 mg is working. We will try to get approval and I will give more samples. Propranolol 5 mg twice daily is not working sufficiently anymore. There is already low blood pressure and possibly side effect with mental slowing noticed by although not by patient. As Nurtec only reduced migraine frequency by 50% and she is unsure whether it reduced intensity, I suggested that she continue on the medication Until We understand more fully. She is okay with this. We will remember that her philosophy is to have minimal medications if anything she wants to get rid of medications per discussion documented April discussion: Her finger tingling and feeling of weakness and dropping things bothers her. There is no clear weakness on exam but her feeling of weakness is certainly understandable if cortical interconnections have been damaged from the stroke. Occupational therapy could help the feeling of weakening and may be even the tingling if part of it is from tight muscles from relative reduced use. She reports that her insurance has not paid for occupational therapy because all of the occupational therapists are outside network. I suggest that if they theoretically cover post stroke rehabilitation, I believe it is their duty to either find someone in network for them or to pay for out of network standard of care treatment: Poststroke occupational therapy if the stroke has affected an upper extremity is standard of care. I again suggested that they look for a telehealth case manager or cna caregiver at the insurance company to guide them through the bureaucracy of the insurance company, as discussed initially April 30, 2021. PLAN Nely Antonio October 18, 2022 CONTINUE propranolol 10 mg tablets, 1/2 tablet twice a day For migraine prevention: ONE Nurtec 75 mg tablet every other day Do not take more than once in 48 hours. We are going to try to get approval from insurance. Meanwhile: I am giving you 8 sample tablets, a 16-day supply. I will have you follow-up in 1 month. Please keep records of how your headaches are doing during the 16 days on Nurtec versus the 2 weeks off of Nurtec. Possible serious side effects include serious hypersensitivity reaction such as rash and shortness of breath, although occurring in less than 1% of patients. This can potentially happen up to several days after dosing. Other possible side effects include nausea, in about 2% of patients, compared to 0.4% of patients with placebo. A small number of prescription medications are CY inhibitors and could increase the blood level of Nurtec and increase the risk of side effects such as nausea. Examples include diltiazem, verapamil, phenobarbital, phenytoin glucocorticoids. If a healthcare provider wishes to start one of these medications, there should be close monitoring for nausea. Uwtm-zow-aovpixd treatments or foods that are strong CYP three A4 inhibitors include [place]'s wort, large amounts of grapefruit juice, turmeric or curcumin. Please avoid large amounts of grapefruit juice, turmeric. Follow-up in 4 weeks; Please try to follow-up in office so I can evaluate more fully her left-sided tingling Angel Tobin MD, PhD [facility] Not available 10/18/2022 17:50:38 01/09/2023 01/09/2023 IMPRESSION: --Status post October 30, 2020 stroke with residual symptoms reported of fatigue, word finding difficulty with jumbling words, memory problems and left hand tingling with dropping items. There is also reported worsening of baseline right-sided migraine. When asked, significant worsening of mood and motivation emerged as an additional symptom. --November 30, 2021:Partially improved headache on propranolol 5 mg 10 AM/5:30 PM, context previous worsening headache since April 30, 2021 context previously worsening headache after stroke compared to before stroke, context: --September 27, 2021: Worsened headache ~July 2022 with no clear cause, increase by patient herself from 5 mg propranolol twice daily up to 10 mg propranolol twice daily, emergency room visit for bad headache early August 2021 with low blood pressure found, patient reduction of propranolol down to 5 mg twice a day subsequently, worsened headache continues. --October 18, 2022 Nurtec 75 mg doses headache frequency by 50% without side effects Both patient and were uncertain of the [facility] discharge diagnosis of her worsening of previous stroke symptoms and her persistent left hand tingling in the context of 2 days of migraine. We reviewed imaging and discharge summary from that time: Separately, her continuing left hand tingling may be myofascial. She is on telemedicine now so I do not have time to demonstrate that and to differentiate from something else that might be going on such as radiculopathy. There was no injury to make radiculopathy more likely. MIGRAINE Nurtec 75 mg is working. We will try to get approval and I will give more samples. Propranolol 5 mg twice daily is not working sufficiently anymore. There is already low blood pressure and possibly side effect with mental slowing noticed by although not by patient. As Nurtec only reduced migraine frequency by 50% and she is unsure whether it reduced intensity, I suggested that she continue on the medication Until We understand more fully. She is okay with this. We will remember that her philosophy is to have minimal medications if anything she wants to get rid of medications per discussion documented April discussion: Her finger tingling and feeling of weakness and dropping things bothers her. There is no clear weakness on exam but her feeling of weakness is certainly understandable if cortical interconnections have been damaged from the stroke. Occupational therapy could help the feeling of weakening and may be even the tingling if part of it is from tight muscles from relative reduced use. She reports that her insurance has not paid for occupational therapy because all of the occupational therapists are outside network. I suggest that if they theoretically cover post stroke rehabilitation, I believe it is their duty to either find someone in network for them or to pay for out of network standard of care treatment: Poststroke occupational therapy if the stroke has affected an upper extremity is standard of care. I again suggested that they look for a telehealth case manager or cna caregiver at the insurance company to guide them through the bureaucracy of the insurance company, as discussed initially April 30, 2021. PLAN Nely Paco January 08, 2023 CONTINUE propranolol 10 mg tablets, 1/2 tablet twice a day Physical therapy for left upper quadrant myofascial syndrome at [facility]: For left upper arm tingling and left upper quadrant spastic tightness residual from right-sided stroke: Myofascial release for stretching, with home exercises. Please note, left pectoralis trigger point worsens the tingling so perhaps loosening might reduce the tingling if not make it go away. For migraine prevention: CONTINUE ONE Nurtec 75 mg tablet every other day Do not take more than once in 48 hours. possible side effects include nausea, in about 2% of patients, compared to 0.4% of patients with placebo. A small number of prescription medications are CY inhibitors and could increase the blood level of Nurtec and increase the risk of side effects such as nausea. Examples include diltiazem, verapamil, phenobarbital, phenytoin glucocorticoids. If a healthcare provider wishes to start one of these medications, there should be close monitoring for nausea. Rute-res-pehegtw treatments or foods that are strong CYP three A4 inhibitors include [place]'s wort, large amounts of grapefruit juice, turmeric or curcumin. Please avoid large amounts of grapefruit juice, turmeric. Follow-up in 3 months Angel Tboin MD, PhD [facility] Not available 01/09/2023 15:23:54 04/06/2023 04/06/2023 IMPRESSION: --Status post October 30, 2020 stroke with residual symptoms reported of fatigue, word finding difficulty with jumbling words, memory problems and left hand tingling with dropping items. There is also reported worsening of baseline right-sided migraine. When asked, significant worsening of mood and motivation emerged as an additional symptom. --November 30, 2021:Partially improved headache on propranolol 5 mg 10 AM/5:30 PM, context previous worsening headache since April 30, 2021 context previously worsening headache after stroke compared to before stroke, context: --September 27, 2021: Worsened headache ~July 2022 with no clear cause, increase by patient herself from 5 mg propranolol twice daily up to 10 mg propranolol twice daily, emergency room visit for bad headache early August 2021 with low blood pressure found, patient reduction of propranolol down to 5 mg twice a day subsequently, worsened headache continues. --October 18, 2022 Nurtec 75 mg reducesheadache frequency by 50% without side effects -- April 06, 2023: Nurtec every other day with continued benefit for poststroke worsened headache, helping predominantly on the days she takes the Nurtec, less definitively on the in between days. Propranolol has not helped sufficiently for migraine headache and may be involved in her episodes of blacking out with tilting her head up and her one episode of almost fainting. She has low blood pressure at baseline and propranolol may lower it further even at her low dose of 5 mg twice a day. She has a philosophy of minimizing medications. I suggest stopping the propranolol for all of these reasons and she agrees. We will remember that her philosophy is to have minimal medications if anything she wants to get rid of medications per discussion documented April 30, 2021 Future directions: other directions for helping headaches more and helping residual light and sound sensitivity. Trigger point injections or Botox for left upper extremity spasticity if physical therapy has not been enough. I will ask at follow-up if the physical therapy and her continued home exercises has helped her left hand tingling at all. January 09: Separately, her continuing left hand tingling may be myofascial. She is on telemedicine now so I do not have time to demonstrate that and to differentiate from something else that might be going on such as radiculopathy. There was no injury to make radiculopathy more likely. November 2021 discussion: Her finger tingling and feeling of weakness and dropping things bothers her. There is no clear weakness on exam but her feeling of weakness is certainly understandable if cortical interconnections have been damaged from the stroke. Occupational therapy could help the feeling of weakening and may be even the tingling if part of it is from tight muscles from relative reduced use. She reports that her insurance has not paid for occupational therapy because all of the occupational therapists are outside network. I suggest that if they theoretically cover post stroke rehabilitation, I believe it is their duty to either find someone in network for them or to pay for out of network standard of care treatment: Poststroke occupational therapy if the stroke has affected an upper extremity is standard of care. I again suggested that they look for a telehealth case manager or cna caregiver at the insurance company to guide them through the bureaucracy of the insurance company, as discussed initially April 30, 2021. PLAN Nely Paco April 06, 2023 CONTINUE propranolol 10 mg tablets, 1/2 tablet twice a day CONTINUE Home exercises learned from PT JAVAN/Marcio ordered January 09, 2023 For left upper arm tingling and left upper quadrant spastic tightness residual from right-sided stroke: Myofascial release for stretching, with home exercises. Please note, left pectoralis trigger point worsens the tingling so perhaps loosening might reduce the tingling if not make it go away. For migraine prevention: CONTINUE ONE Nurtec 75 mg tablet every other day Do not take more than once in 48 hours. Follow-up in 2 months Angel Tobin MD, PhD [facility] Not available 04/06/2023 10:44:23 05/31/2023 05/31/2023 IMPRESSION: --Status post October 30, 2020 stroke with residual symptoms reported of fatigue, word finding difficulty with jumbling words, memory problems and left hand tingling with dropping items. There is also reported worsening of baseline right-sided migraine. When asked, significant worsening of mood and motivation emerged as an additional symptom. --November 30, 2021:Partially improved headache on propranolol 5 mg 10 AM/5:30 PM, context previous worsening headache since April 30, 2021 context previously worsening headache after stroke compared to before stroke, context: --September 27, 2021: Worsened headache ~July 2022 with no clear cause, increase by patient herself from 5 mg propranolol twice daily up to 10 mg propranolol twice daily, emergency room visit for bad headache early August 2021 with low blood pressure found, patient reduction of propranolol down to 5 mg twice a day subsequently, worsened headache continues. --October 18, 2022 Nurtec 75 mg reducesheadache frequency by 50% without side effects -- April 06, 2023: Nurtec every other day with continued benefit for poststroke worsened headache, helping predominantly on the days she takes the Nurtec, less definitively on the in between days. --May 31, 2022 propranolol 5 mg twice daily and then back on foraminal, 5 mg every 6 PM, with continuing headaches on the days between Nurtec 75 mg q. OD dosing, headache starting early afternoon and becoming severe early evening ~6:30 PM, correlating with one episodes of tilting her head up and seeing black tend to occur. Her history of timing of bad headaches and episodes of seeing black with extending her head suggests that these latter episodes reflect lightheadedness associated with her migraine. History does not suggest that the lightheadedness correlates with the propranolol, a because I had hypothesized given propranolol's propensity for reducing heart rate and blood pressure. Just the opposite, the lightheadedness episodes seem to improve partially with restarting propranolol at half the previous dose suggesting that propranolol helping migraine helps both the migraine and the likely associated lightheadedness episodes. Therefore I suggest that she move up her single dose of propranolol 5 mg from 6 PM to 1:30 PM, so that the action of propranolol is maximum when her migraine gets bad. We will remember that her philosophy is to have minimal medications if anything she wants to get rid of medications per discussion documented April 30, 2021 At the end of our session, she mentions that she is now getting tingling on her right hand that makes it difficult to cut propranolol pills. She wonders what the tingling is from. I tell her that I am not sure. From the neurological perspective, carpal tunnel syndrome is plausible. I can obtain more information by either prescribing occupational therapy to start her with a carpal tunnel splint or if she does not want to do this, with EMG & nerve conduction studies. She wishes neither direction. She will just see how it goes. Future directions: other directions for helping headaches more and helping residual light and sound sensitivity. Trigger point injections or Botox for left upper extremity spasticity if physical therapy has not been enough. I will ask at follow-up if the physical therapy and her continued home exercises has helped her left hand tingling at all. January 09: Separately, her continuing left hand tingling may be myofascial. She is on telemedicine now so I do not have time to demonstrate that and to differentiate from something else that might be going on such as radiculopathy. There was no injury to make radiculopathy more likely. November 2021 discussion: Her finger tingling and feeling of weakness and dropping things bothers her. There is no clear weakness on exam but her feeling of weakness is certainly understandable if cortical interconnections have been damaged from the stroke. Occupational therapy could help the feeling of weakening and may be even the tingling if part of it is from tight muscles from relative reduced use. She reports that her insurance has not paid for occupational therapy because all of the occupational therapists are outside network. I suggest that if they theoretically cover post stroke rehabilitation, I believe it is their duty to either find someone in network for them or to pay for out of network standard of care treatment: Poststroke occupational therapy if the stroke has affected an upper extremity is standard of care. I again suggested that they look for a telehealth case manager or cna caregiver at the insurance company to guide them through the bureaucracy of the insurance company, as discussed initially April 30, 2021. PLAN Nely Antonio May 31, 2023 Move propranolol: 10 mg tablets, 1/2 tablet 1:30PM instead of 6PM CONTINUE Home exercises learned from PT JAVAN/Marcio ordered January 09, 2023 For left upper arm tingling and left upper quadrant spastic tightness residual from right-sided stroke: Myofascial release for stretching, with home exercises. Please note, left pectoralis trigger point worsens the tingling so perhaps loosening might reduce the tingling if not make it go away. For migraine prevention: CONTINUE ONE Nurtec 75 mg tablet every other day Do not take more than once in 48 hours. Follow-up in 2 months Angel Tobin MD, PhD [facility] mrossen Not available 05/31/2023 16:15:51 Plan of Treatment Reminders Order Date Submit Date Provider Last Modified By Organization Details Last Modified Time Details Appointments None recorded. Lab None recorded. Referral neurologic physical therapist referral - For left upper arm tingling and left upper quadrant spastic tightness residual from right-sided stroke: Myofascial release for stretching, with home exercises. Please note, left pectoralis trigger point worsens the tingling so perhaps loosening might reduce the tingling if not make it go away. 2022 023 [email or web address] [facility] - [place], [address], [place], [address], 10:30:47 Procedures None recorded. Surgeries None recorded. Imaging None recorded. Medication Orders None recorded. Patient TargetsNo targets recorded. Patient Instructions Encounter Date Encounter Id Patient Instructions Last Modified By Organization Details Last Modified Time 09/27/2022 [id number] Discussion acros s issues of diagnoses and management and same day associated chart review and management greater than 50% greater than 40 minutes [email or web address] Not available 09/27/2022 15:18:03 10/18/2022 [id number] September 27, 2022 discussion: Nurtec a new CGRP inhibitor which may be used every 48 hours as a migraine preventative. She wants a medication with minimal side effects and the only side effect greater than 1% from the clinical trial is 2% nausea. Some of the other CGRP inhibitors have increased risk of constipation and she has significant constipation at baseline. Still other CGRP inhibitors have monthly doses so if there are any side effects they have to be entered for a month. Amitriptyline, Topamax and Depakote may cause cognitive slowing which is in a special risk for this patient's status post stroke but he has forgetfulness and whose cognitive reserve is lessened. Verapamil is another blood pressure medication that may also cause low blood pressure as propranolol has. In these contexts, I think that Nurtec is the right choice. I ask if they wish to stop the propranolol now. She is not having gustavo dizziness or gait abnormality so dangerous side effects are not occurring. Mental slowing that is occurring is subtle so only the notices maybe. If she goes off this propranolol before she starts the Nurtec her headaches may worsen further which will be a problem if the Nurtec does not work ideally. When we go over all of this, she decides to postpone stopping the propranolol at least until after the Nurtec trial. Discussion across issues of diagnoses and management and same day associated chart review and management greater than 50% greater than 40 minutes [email or web address] Not available 10/18/2022 17:50:44 01/09/2023 [id number] September 27, 2022 discussion: Nurtec a new CGRP inhibitor which may be used every 48 hours as a migraine preventative. She wants a medication with minimal side effects and the only side effect greater than 1% from the clinical trial is 2% nausea. Some of the other CGRP inhibitors have increased risk of constipation and she has significant constipation at baseline. Still other CGRP inhibitors have monthly doses so if there are any side effects they have to be entered for a month. Amitriptyline, Topamax and Depakote may cause cognitive slowing which is in a special risk for this patient's status post stroke but he has forgetfulness and whose cognitive reserve is lessened. Verapamil is another blood pressure medication that may also cause low blood pressure as propranolol has. In these contexts, I think that Nurtec is the right choice. I ask if they wish to stop the propranolol now. She is not having gustavo dizziness or gait abnormality so dangerous side effects are not occurring. Mental slowing that is occurring is subtle so only the notices maybe. If she goes off this propranolol before she starts the Nurtec her headaches may worsen further which will be a problem if the Nurtec does not work ideally. When we go over all of this, she decides to postpone stopping the propranolol at least until after the Nurtec trial. Discussion across issues of diagnoses and management and same day associated chart review and management greater than 50% greater than 30 minutes lucila Not available 01/09/2023 15:24:53 04/06/2023 [id number] January 09, 2023 Bot h patient and were uncertain of the [facility] discharge diagnosis of her worsening of previous stroke symptoms and her persistent left hand tingling in the context of 2 days of migraine. We reviewed imaging and discharge summary from that time: September 27, 2022 discussion: Nurtec a new CGRP inhibitor which may be used every 48 hours as a migraine preventative. She wants a medication with minimal side effects and the only side effect greater than 1% from the clinical trial is 2% nausea. Some of the other CGRP inhibitors have increased risk of constipation and she has significant constipation at baseline. Still other CGRP inhibitors have monthly doses so if there are any side effects they have to be entered for a month. Amitriptyline, Topamax and Depakote may cause cognitive slowing which is in a special risk for this patient's status post stroke but he has forgetfulness and whose cognitive reserve is lessened. Verapamil is another blood pressure medication that may also cause low blood pressure as propranolol has. In these contexts, I think that Nurtec is the right choice. I ask if they wish to stop the propranolol now. She is not having gustavo dizziness or gait abnormality so dangerous side effects are not occurring. Mental slowing that is occurring is subtle so only the notices maybe. If she goes off this propranolol before she starts the Nurtec her headaches may worsen further which will be a problem if the Nurtec does not work ideally. When we go over all of this, she decides to postpone stopping the propranolol at least until after the Nurtec trial. Discussion across issues of diagnoses and management and same day associated chart review and management greater than 50% greater than 30 minutes lucila Not available 04/06/2023 10:41:58 05/31/2023 [id number] PREVIOUS MEDICAITONS Propranolol 5mg bid has not helped sufficiently for migraine headache and may be involved in her episodes of blacking out with tilting her head up and her one episode of almost fainting. She has low blood pressure at baseline PREVIOUS DISCUSSIONS >>>>>>>>>>April 06, 2023 Propranolol has not helped sufficiently for migraine headache and may be involved in her episodes of blacking out with tilting her head up and her one episode of almost fainting. She has low blood pressure at baseline and propranolol may lower it further even at her low dose of 5 mg twice a day. She has a philosophy of minimizing medications. I suggest stopping the propranolol for all of these reasons and she agrees. >>>>>>>>>>January 09, 2023 Both patient and were uncertain of the [facility] discharge diagnosis of her worsening of previous stroke symptoms and her persistent left hand tingling in the context of 2 days of migraine. We reviewed imaging and discharge summary from that time: September 27, 2022 discussion: Nurtec a new CGRP inhibitor which may be used every 48 hours as a migraine preventative. She wants a medication with minimal side effects and the only side effect greater than 1% from the clinical trial is 2% nausea. Some of the other CGRP inhibitors have increased risk of constipation and she has significant constipation at baseline. Still other CGRP inhibitors have monthly doses so if there are any side effects they have to be entered for a month. Amitriptyline, Topamax and Depakote may cause cognitive slowing which is in a special risk for this patient's status post stroke but he has forgetfulness and whose cognitive reserve is lessened. Verapamil is another blood pressure medication that may also cause low blood pressure as propranolol has. In these contexts, I think that Nurtec is the right choice. I ask if they wish to stop the propranolol now. She is not having gustavo dizziness or gait abnormality so dangerous side effects are not occurring. Mental slowing that is occurring is subtle so only the notices maybe. If she goes off this propranolol before she starts the Nurtec her headaches may worsen further which will be a problem if the Nurtec does not work ideally. When we go over all of this, she decides to postpone stopping the propranolol at least until after the Nurtec trial. Discussion across issues of diagnoses and management and same day associated chart review and management greater than 50% greater than 40 minutes [email or web address] Not available 05/31/2023 16:15:41 Reason for Referral For left upper arm tingling and left upper quadrant spastic tightness residual from right-sided stroke: Myofascial release for stretching, with home exercises. Please note, left pectoralis trigger point worsens the tingling so perhaps loosening might reduce the tingling if not make it go away. Referring Physician: Angel Tobin, Neurology, Encounter Date: 01/09/2023 Results Created Date Observation Date Name Description Value Unit Range Abnormal Flag Note LastModifiedBy Organization Detail LastModifiedTime 09/26/19 23 08/25/2022 MRI, brain , w/wo contr ast No observ ation record ed. [email or web address] [facility] (Med Rec[facility] [address] [place], [address], 09/26/2022 11:36:43 Result Notes None recorded. Procedures Surgical History Date Name Laterality Status Provider Name and Address Organization Details Recorded Time 05/31/2023 DATA REVIEW completed Angel Tobin MD [address] [place] [address] [place], [phone], [facility] 05/31/2023 15:26:54 04/06/2023 DATA REVIEW completed Angel Tobin MD [address] [place] [address] [place], [address], [facility] 04/06/2023 10:18:06 01/09/2023 DATA REVIEW completed Angel Tobin MD [address] [place] [address] [place], [phone], [facility] 01/09/2023 15:21:23 10/18/2022 DATA REVIEW completed Angel Tobin MD [address] [place] [address] [place], [phone], [facility] 10/18/2022 17:44:06 Imaging Results None recorded. Procedure Notes None recorded. Medical Equipment None Reported. Allergies Allergen ID Allergen Name Allergen Category Reaction Reaction Severity Criticality Documentation Date Start Date Code Code System Note Provider Name and Address Organization Details Recorded Time 473 morphine medicatio n Not available Not available Not available 04/29/2021 7052 [facility] 14:09[facility]18 474 aspirin medicatio n Not available Not available Not available 04/29/2021 1191 RxNorm Kayli Vick [facility] 14:09:40 475 Dilaudid medicatio n Not available Not available Not available 04/29/2021 81708 3 [facility]:10[facility]26 476 Product containin g penicilli n (product) medicatio n Not available Not available Not available 04/29/2021 90589 8001 [facility] 14:10:56 477 acetamino phen / oxycodone medicatio n Not available Not available Not available 04/29/2021 56912 3 RxNorm Kayli Vick [facility] 14:11:14 Medications Name Sig Start Date Stop Date Status Note LastModified by Organization Details LastModified Time atorvastatin 80 mg tablet TAKE 1 TABLET BY MOUTH EVERY DAY active Not Available Not Available No t Available atorvastatin 20 mg tablet TAKE 1 TABLET BY MOUTH EVERY DAY active Not Available Not Available No t Available atorvastatin 10 mg tablet TAKE 1 AND 1/2 TABLETS BY MOUTH ONCE DAILY active Not Available Not Available No t Available ondansetron HCl 4 mg tablet active Not Available Not Available Not Available alendronate 70 mg tablet TAKE 1 TABLET ORALLY ONCE A WEEK 30 MIN. BEFORE FIRST FOOD, DRINK OR MEDICINE OF DAY WITH WATER active Not Available Not Available No t Available prochlorperazi ne maleate 10 mg tablet 1 TABLET BY MOUTH 3 TIMES A DAY, FOR 5 DAYS, NEEDED FOR HEADACHE active Not Available Not Available No t Available sulfamethoxazo le 800 mg-trimethopri m 160 mg tablet TAKE 1 TABLET BY MOUTH TWICE A DAY FOR 7 DAYS active Not Available Not Available No t Available aspirin 81 mg tablet,delayed release TAKE 1 TABLET BY MOUTH EVERY DAY active Not Available Not Available No t Available butalbital-diamond taminophen-caf feine 50 mg-325 mg-40 mg tablet TAKE 1 TABLET BY MOUTH EVERY 8 HOURS NEEDED FOR HEADACHE active Not Available Not Available No t Available propranolol 10 mg tablet Take 1/2 tablet at 1:30PM 2023 active Not Available Not Available Not Avai lable norethindrone (contraceptive ) 0.35 mg tablet active Not Available Not Available Not Available nitrofurantoin monohydrate/ma crocrystals 100 mg capsule TAKE 1 CAPSULE BY MOUTH TWICE A DAY FOR 5 DAYS active Not Available Not Available No t Available duloxetine 20 mg capsule,delaye d release TAKE 1 CAPSULE BY MOUTH EVERY DAY active Not Available Not Available No t Available loratadine active Not Available Not Av ailable Not Available atorvastatin active Not Available Not Available Not Available aspirin active Not Available Not Avail able Not Available Citracal active Not Available Not Avai lable Not Available diclofenac 1 % topical gel active Not Available Not Available Not Available [facility] ODT 75 mg disintegrating tablet active Not Available Not Available Not Available Vitals None Recorded Social History Question Answer Notes LastModified by Organizat ion Details LastModified Time Tobacco Smoking Status Never Smoker Kayli flores [facility] 04/29/2021 14:15:14 What Is Your Level Of Caffeine Consumption? Moderate 2 Cups Of Coffee A Day Information not available 04/29/2021 What Is The Highest Grade Or Level Of School You Have Completed Or The Highest Degree You Have Received? [id number] Information not available 04/29/2021 Which Of Your Hands Is Dominant? Right Information not available 04/29/2021 What Is Your Relationship Status? Information not available 04/29/2021 Sex: Unknown Functional Status Question Answer Note LastModified by Organizat ion Details LastModified Time Do you or have you ever used any other forms of tobacco or nicotine? No Information not available 04/29/2021 What is your level of alcohol consumption? Moderate 2 drinks a week Information not available 04/29/2021 Mental Status None recorded. Family History Relationship Description Onset Age of this Age Resolved Age Notes LastModified by Organization Details LastModified Time Unspecified Relation Heart disease Not available 2020 14:12:30 Unspecified Relation Neuropathy Not available 2020 14:12:46 Medical History Condition Response Stroke Y Headaches Y Gynecological HistoryNo gynecological history recorded. Obstetrics History GPAL:G 0 P 0 0 0 0 Past Encounters Encounter ID Performer Location Encounter Start Date Encounter Closed Date Diagnosis/Indication Diagnosis SNOMED-CT Code Diagnosis ICD10 Code Diagnosis IMO Codes Diagnosis Note [id number] Angel Tobin MD [facility] [address] [place] [address] [place] [address] 04/29/2021 14:05:02 04/29/2021 16:35:04 Completed stroke 74255137 I63.131 Migraine with aura 45761 06 G43.109 Migraine w ith ischemic complication [id number] G43.109 [id number] Angel Tobin MD [facility] [address] [place] [address] [place] [id number] 05/20/2021 14:02:05 05/20/2021 14:40:31 Completed stroke 36867427 I63.131 Migraine with aura 82599 06 G43.109 Migraine w ith ischemic complication [id number] G43.109 [id number] Angel Tobin MD [facility] [address] [place] [address] [place] [id number] 11/30/2021 14:29:36 11/30/2021 17:12:09 Completed stroke 84682514 I63.131 Migraine with aura 39341 06 G43.109 Migraine w ith ischemic complication [id number] G43.109 [id number] Angel Tobin MD [facility] [address] [place] [address] [place] [id number] 09/27/2022 14:09:27 09/27/2022 17:07:36 Completed stroke 85157070 I63.131 Migraine with aura 08675 06 G43.109 Migraine w ith ischemic complication [id number] G43.109 [id number] Angel Tobin MD [facility] [address] [place] [address] [place] [address] 10/18/2022 16:13:11 10/19/2022 08:33:24 Completed stroke 89148325 I63.131 Migraine with aura 00528 06 G43.109 Migraine w ith ischemic complication 312242488 G43.109 [id number] Angel Tobin MD [facility] [address] [place] [address] [place] [id number] 01/09/2023 14:02:00 01/09/2023 17:02:33 Completed stroke 13335407 I63.131 Migraine with aura 83506 06 G43.109 Migraine w ith ischemic complication 964105095 G43.109 [id number] Angel Tobin MD [facility] [address] [place] [address] [place] [id number] 04/06/2023 10:06:10 04/06/2023 11:09:43 Completed stroke 00151631 I63.131 Migraine with aura 05232 06 G43.109 Migraine w ith ischemic complication [id number] G43.109 [id number] Angel Tobin MD [facility] [address] [place] [address] [place] [id number] 05/31/2023 15:17:47 05/31/2023 16:58:31 Completed stroke 99991099 I63.131 Migraine with aura 01308 06 G43.109 Migraine w ith ischemic complication 929907899 G43.109 Health Concerns Section Related Observation LastModified by Organization Detai ls LastModified Time None Recorded Concern Status LastModified by Organization Details LastModified Time None Recorded Advance Directives Directive None Recorded Payers Insurance Date Sequence Insurance Name Policy Number Policy Gutierrez Covered Member ID Gutierrez Member ID Guarantor Name 09/27/2022 1 [facility] [id number] Michael Antonio [id number] Nely Poloer 12/17/2024 1 [facility] [id number] M Michael Antonio [id number] Nely Antonio Notes Date Note Type Note Provider Name and Address Organization Details Recorded Time 09/27/2022 text/html Follow up for persisting symptoms status post October 30, 2020 stroke, headache most notably., with Michael Antonio, her . After November 30, 2021 neurology follow-up encounter, up until near the end 2021, headaches continued unchanged, partially improved on propranolol as discussed November 30, not every day anymore, less severe, usually late in the day and going away with the second dose of propranolol.At some point over the months she progressed from the 5 mg every day (10 mg tablets, each dose 0.5 tablet) up to one full tablet every day. She cannot say when. This is part of my problem, I forget. She takes her medications independently so her does not have an idea of when this change occurred. Sometime toward the end of July, her headaches began to worsen. They became every day again and more severe. During the first week of August she had a bad headache, again one that made her dysarthria worse as was occurring before she has started the propranolol. She is presented to the emergency room. She had imaging. She was told that there was not a new stroke or any new worrisome findings on the imaging or generally. Her blood pressure was quite low. I told her to stop the propranolol.Instead, since, she has cut the propranolol back down to 0.5 tablet (5 mg) twice a day. Her headaches have not gotten better. They remain daily and more severe than they were during the first several months that she was on propranolol 5 mg twice a day. She still has low blood pressure, measured at home as 90/58. She has no dizziness. She cannot say if she has mental slowing above and beyond the forgetfulness that she attributes to the stroke. Her thinks that there might be more mental slowing now than several months ago. Atorvastatin has been stopped for a month because she was losing weight and had a reduced appetite. Her appetite has improved. This atorvastatin discontinuation occurred after her headaches worsened. She reports no other medication changes. >>>>>>>>>>>>>>>>>>>>A [facility] 2021 neurology follow-up:After May 20, 2021 neurology follow-up encounter, she started propranolol 10 mg tablets, 1/2 tablet twice a day, ~10 AM, ~5:30 PM. She has no side effects. Her headache is significantly although still only partially better. It is never all day anymore. There is no more vision symptomatology. 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 It occurs about every other day, usually in the evening as she is preparing dinner. It goes away shortly after she takes her 5:30 PM propranolol dose. Her atorvastatin has been changed from 20 mg down to 15 mg because of GI side effects, she reports. Otherwise, there are no medication changes. She continues to have tingling in her left hand. It seems worse. She is also dropping things still and her left hand feels weak. Presenting symptomatology relating to October 30, 2020 stroke and persistent post stroke symptomatology is reviewed from initial neurology consultation, April 29, 2021: In the beginning of October, she had onset of a severe right-sided migraine. This has happened before and in itself was therefore painful but not unusual. She soon had onset of new symptoms, however, including blurred and sometimes double vision, and slurred speech. Her noticed word finding difficulties and dysarthria. She presented for hospital admission October 30, 2020, 6 days after symptom onset and stroke was diagnosed. Aspirin 81 mg was started and atorvastatin 80 mg was started. At some point after hospitalization, she began noticing an additional symptom, tingling in the front more than the back of the whole of her left hand and dropping things with her left hand. The left hand has not felt weak. Physical therapy, speech therapy and Occupational Therapy were ordered after hospital discharge. She has been able to obtain none of these services because she has not been able to find any in network providers for these services. She was having nausea and reduced appetite. This improved partially with reduction of atorvastatin which is now 20 mg daily. Heart monitoring has been done for 2 weeks and was unrevealing. Her main persistent symptoms bothering her include exhaustion, losing words a nd jumbling words when she is more tired, poor memory and worsened mood. Her difficulty with words has improved a little since a few days after the stroke; other symptoms have not improved at all. Her exhaustion is such that she can pursue an activity such as laundry for 60 minutes or at most 90 minutes after which she needs to rest. When she is tired, the improvement that she notices when well rested with her expressive speech regresses back to as bad as it was a few days after the stroke. When she has a focused conversation with her on a subject of mutual interest, she forgets pertinent details after only 15 minutes. Her mood is irritated and agitated. She has little motivation. Her finds her easily especially when faced her post stroke symptomatology. Finally, her right-sided migraines which were infrequent before the stroke, less than once a month, are now occurring 2 or 3 times per week. Is more frequent and bothersome than before her stroke. Angel Tobin MD [address] [place] [address], [phone], [facility] 09/27/2022 15:19:54 10/18/2022 text/html Follow up for persisting symptoms status post October 30, 2020 stroke, headache most notably., with Michael Antonio, her . After September 27, 2022 neurology encounter, she took a sample of Nurtec 75 mg every other day, eight samples across 16 days. She remained on propranolol 5 mg twice a day. Headaches transformed from daily and often severe to about 50% of the time. She cannot say whether the residual headaches or any milder when they occurred. She did not take baseline Fioricet prescribed by primary care as she was unsure if she could combine the medications. Headaches start later in the day with or without the Ubrelvy.Over the last 5 days, since samples of Nurtec ran out, headaches have reverted to baseline on propranolol of daily headache, often severe. >>>>>>>>>>>>>>>>>>>>[facility] neurolog[facility] follow-up:After November 30, 2021 neurology follow-up encounter, up until near the end of 2021, headaches continued unchanged, partially improved on propranolol as discussed November 30, not every day anymore, less severe, usually late in the day and going away with the second dose of propranolol.At some point over the months she progressed from the 5 mg every day (10 mg tablets, each dose 0.5 tablet) up to one full tablet every day. She cannot say when. This is part of my problem, I forget. She takes her medications independently so her does not have an idea of when this change occurred. Sometime toward the end of July, her headaches began to worsen. They became every day again and more severe. During the first week of August she had a bad headache, again one that made her dysarthria worse as was occurring before she has started the propranolol. She is presented to the emergency room. She had imaging. She was told that there was not a new stroke or any new worrisome findings on the imaging or generally. Her blood pressure was quite low. I told her to stop the propranolol.Instead, since, she has cut the propranolol back down to 0.5 tablet (5 mg) twice a day. Her headaches have not gotten better. They remain daily and more severe than they were during the first several months that she was on propranolol 5 mg twice a day. She still has low blood pressure, measured at home as 90/58. She has no dizziness. She cannot say if she has mental slowing above and beyond the forgetfulness that she attributes to the stroke. Her thinks that there might be more mental slowing now than several months ago. Atorvastatin has been stopped for a month because she was losing weight and had a reduced appetite. Her appetite has improved. This atorvastatin discontinuation occurred after her headaches worsened. She reports no other medication changes. >>>>>>>>>>>>>>>>>>>>A [facility] 2021 neurology follow-up:After May 20, 2021 neurology follow-up encounter, she started propranolol 10 mg tablets, 1/2 tablet twice a day, ~10 AM, ~5:30 PM. She has no side effects. Her headache is significantly although still only partially better. It is never all day anymore. There is no more vision symptomatology. 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 It occurs about every other day, usually in the evening as she is preparing dinner. It goes away shortly after she takes her 5:30 PM propranolol dose. Her atorvastatin has been changed from 20 mg down to 15 mg because of GI side effects, she reports. Otherwise, there are no medication changes. She continues to have tingling in her left hand. It seems worse. She is also dropping things still and her left hand feels weak. Presenting symptomatology relating to October 30, 2020 stroke and persistent post stroke symptomatology is reviewed from initial neurology consultation, April 29, 2021: In the beginning of October, she had onset of a severe right-sided migraine. This has happened before and in itself was therefore painful but not unusual. She soon had onset of new symptoms, however, including blurred and sometimes double vision, and slurred speech. Her noticed word finding difficulties and dysarthria. She presented for hospital admission October 30, 2020, 6 days after symptom onset and stroke was diagnosed. Aspirin 81 mg was started and atorvastatin 80 mg was started. At some point after hospitalization, she began noticing an additional symptom, tingling in the front more than the back of the whole of her left hand and dropping things with her left hand. The left hand has not felt weak. Physical therapy, speech therapy and Occupational Therapy were ordered after hospital discharge. She has been able to obtain none of these services because she has not been able to find any in network providers for these services. She was having nausea and reduced appetite. This improved partially with reduction of atorvastatin which is now 20 mg daily. Heart monitoring has been done for 2 weeks and was unrevealing. Her main persistent symptoms bothering her include exhaustion, losing words a nd jumbling words when she is more tired, poor memory and worsened mood. Her difficulty with words has improved a little since a few days after the stroke; other symptoms have not improved at all. Her exhaustion is such that she can pursue an activity such as laundry for 60 minutes or at most 90 minutes after which she needs to rest. When she is tired, the improvement that she notices when well rested with her expressive speech regresses back to as bad as it was a few days after the stroke. When she has a focused conversation with her on a subject of mutual interest, she forgets pertinent details after only 15 minutes. Her mood is irritated and agitated. She has little motivation. Her finds her easily especially when faced her post stroke symptomatology. Finally, her right-sided migraines which were infrequent before the stroke, less than once a month, are now occurring 2 or 3 times per week. Is more frequent and bothersome than before her stroke. Angel Tobin MD [address] [place] [address] [place], [phone], [facility] 10/18/2022 17:51:00 01/09/2023 text/html Follow up for persisting symptoms status post October 30, 2020 stroke, headache most notably., with Michael Antonio, her . Since October 18, 2022 neurology follow-up encounter, has been approved by insurance and she thus has transitioned from samples to prescription Nurtec 75 mg every other day. Her headaches remain only once a day since transitioning from daily after September 27, 2022 starting Nurtec every day. At that time, she could not tell if they were milder when they occurred. Now she can be more definitive: They are more mild, 5/10 instead of 10/10 intense previously. They started in the evening as her headaches tend to do.Meanwhile, she has been bothered by tingling throughout her left upper extremity residual from her stroke. It is continuous but seems more extended proximally when it is cold. She also notes chronic pain in the left chest and shoulder and upper back since the stroke. >>>>>>>>>>>>>>>>>>>>[facility] September 27, 2022 neurology encounter, she took a sample of Nurtec 75 mg every other day, eight samples across 16 days. She remained on propranolol 5 mg twice a day. Headaches transformed from daily and often severe to about 50% of the time. She cannot say whether the residual headaches or any milder when they occurred. She did not take baseline Fioricet prescribed by primary care as she was unsure if she could combine the medications. Headaches start later in the day with or without the Ubrelvy.Over the last 5 days, since samples of Nurtec ran out, headaches have reverted to baseline on propranolol of daily headache, often severe. >>>>>>>>>>>>>>>>>>>>[facility] 2022 neurology follow-up:After November 30, 2021 neurology follow-up encounter, up until near the end of 2021, headaches continued unchanged, partially improved on propranolol as discussed November 30, not every day anymore, less severe, usually late in the day and going away with the second dose of propranolol.At some point over the months she progressed from the 5 mg every day (10 mg tablets, each dose 0.5 tablet) up to one full tablet every day. She cannot say when. This is part of my problem, I forget. She takes her medications independently so her does not have an idea of when this change occurred. Sometime toward the end of July, her headaches began to worsen. They became every day again and more severe. During the first week of August she had a bad headache, again one that made her dysarthria worse as was occurring before she has started the propranolol. She is presented to the emergency room. She had imaging. She was told that there was not a new stroke or any new worrisome findings on the imaging or generally. Her blood pressure was quite low. I told her to stop the propranolol.Instead, since, she has cut the propranolol back down to 0.5 tablet (5 mg) twice a day. Her headaches have not gotten better. They remain daily and more severe than they were during the first several months that she was on propranolol 5 mg twice a day. She still has low blood pressure, measured at home as 90/58. She has no dizziness. She cannot say if she has mental slowing above and beyond the forgetfulness that she attributes to the stroke. Her thinks that there might be more mental slowing now than several months ago. Atorvastatin has been stopped for a month because she was losing weight and had a reduced appetite. Her appetite has improved. This atorvastatin discontinuation occurred after her headaches worsened. She reports no other medication changes. >>>>>>>>>>>>>>>>>>>>A [facility] 2021 neurology follow-up:After May 20, 2021 neurology follow-up encounter, she started propranolol 10 mg tablets, 1/2 tablet twice a day, ~10 AM, ~5:30 PM. She has no side effects. Her headache is significantly although still only partially better. It is never all day anymore. There is no more vision symptomatology. 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 It occurs about every other day, usually in the evening as she is preparing dinner. It goes away shortly after she takes her 5:30 PM propranolol dose. Her atorvastatin has been changed from 20 mg down to 15 mg because of GI side effects, she reports. Otherwise, there are no medication changes. She continues to have tingling in her left hand. It seems worse. She is also dropping things still and her left hand feels weak. Presenting symptomatology relating to October 30, 2020 stroke and persistent post stroke symptomatology is reviewed from initial neurology consultation, April 29, 2021: In the beginning of October, she had onset of a severe right-sided migraine. This has happened before and in itself was therefore painful but not unusual. She soon had onset of new symptoms, however, including blurred and sometimes double vision, and slurred speech. Her noticed word finding difficulties and dysarthria. She presented for hospital admission October 30, 2020, 6 days after symptom onset and stroke was diagnosed. Aspirin 81 mg was started and atorvastatin 80 mg was started. At some point after hospitalization, she began noticing an additional symptom, tingling in the front more than the back of the whole of her left hand and dropping things with her left hand. The left hand has not felt weak. Physical therapy, speech therapy and Occupational Therapy were ordered after hospital discharge. She has been able to obtain none of these services because she has not been able to find any in network providers for these services. She was having nausea and reduced appetite. This improved partially with reduction of atorvastatin which is now 20 mg daily. Heart monitoring has been done for 2 weeks and was unrevealing. Her main persistent symptoms bothering her include exhaustion, losing words a nd jumbling words when she is more tired, poor memory and worsened mood. Her difficulty with words has improved a little since a few days after the stroke; other symptoms have not improved at all. Her exhaustion is such that she can pursue an activity such as laundry for 60 minutes or at most 90 minutes after which she needs to rest. When she is tired, the improvement that she notices when well rested with her expressive speech regresses back to as bad as it was a few days after the stroke. When she has a focused conversation with her on a subject of mutual interest, she forgets pertinent details after only 15 minutes. Her mood is irritated and agitated. She has little motivation. Her finds her easily especially when faced her post stroke symptomatology. Finally, her right-sided migraines which were infrequent before the stroke, less than once a month, are now occurring 2 or 3 times per week. Is more frequent and bothersome than before her stroke. Angel Tobin MD [address] [place] [address] [place], [phone], [facility] 01/09/2023 15:25:48 04/06/2023 text/html Follow up for persisting symptoms status post October 30, 2020 stroke, headache most notably., with Michael Antonio, her . Since January 09, 2023 neurology follow-up encounter, Nurtec 75 mg every other morning for migraine prevention has been approved and she has continued on Nurtec without any side effects. Headaches continue better but not resolved. Are those that she takes Nurtec. She has headaches only about 20% of these days and it is less severe than previously s he can proceed with her daily activities. On the in between days, headache occurs about 50% of the time and is more severe. She still can continue with daily activities but she has to push through them.She continues to have light and sound sensitivity and light and sound trigger headaches. This has occurred at physical therapy. They have not been able to dim the light or stop the music which is too loud for her. Because of these issues in part, she has stopped physical therapy. She continues the home exercises for the tightness in her left upper quadrant secondary to poststroke past historyShe continues on propranolol 10 mg tablets, 1/2 tablet twice a day. She finds them hard to cut. In recent times, if she looks up, extending her head, she sometimes sees black. Separately, she has once almost fainted. >>>>>>>>>>>>>>>>>>>> January 09, 2023Since October 18, 2022 neurology follow-up encounter, has been approved by insurance and she thus has transitioned from samples to prescription Nurtec 75 mg every other day. Her headaches remain only once a day since transitioning from daily after September 27, 2022 starting Nurtec every day. At that time, she could not tell if they were milder when they occurred. Now she can be more definitive: They are more mild, 5/10 instead of 10/10 intense previously. They started in the evening as her headaches tend to do.Meanwhile, she has been bothered by tingling throughout her left upper extremity residual from her stroke. It is continuous but seems more extended proximally when it is cold. She also notes chronic pain in the left chest and shoulder and upper back since the stroke. >>>>>>>>>>>>>>>>>>>>[facility] September 27, 2022 neurology encounter, she took a sample of Nurtec 75 mg every other day, eight samples across 16 days. She remained on propranolol 5 mg twice a day. Headaches transformed from daily and often severe to about 50% of the time. She cannot say whether the residual headaches or any milder when they occurred. She did not take baseline Fioricet prescribed by primary care as she was unsure if she could combine the medications. Headaches start later in the day with or without the Ubrelvy.Over the last 5 days, since samples of Nurtec ran out, headaches have reverted to baseline on propranolol of daily headache, often severe. >>>>>>>>>>>>>>>>>>>>[facility]:After November 30, 2021 neurology follow-up encounter, up until near the end 2021, headaches continued unchanged, partially improved on propranolol as discussed November 30, not every day anymore, less severe, usually late in the day and going away with the second dose of propranolol.At some point over the months she progressed from the 5 mg every day (10 mg tablets, each dose 0.5 tablet) up to one full tablet every day. She cannot say when. This is part of my problem, I forget. She takes her medications independently so her does not have an idea of when this change occurred. Sometime toward the end of July, her headaches began to worsen. They became every day again and more severe. During the first week of August she had a bad headache, again one that made her dysarthria worse as was occurring before she has started the propranolol. She is presented to the emergency room. She had imaging. She was told that there was not a new stroke or any new worrisome findings on the imaging or generally. Her blood pressure was quite low. I told her to stop the propranolol.Instead, since, she has cut the propranolol back down to 0.5 tablet (5 mg) twice a day. Her headaches have not gotten better. They remain daily and more severe than they were during the first several months that she was on propranolol 5 mg twice a day. She still has low blood pressure, measured at home as 90/58. She has no dizziness. She cannot say if she has mental slowing above and beyond the forgetfulness that she attributes to the stroke. Her thinks that there might be more mental slowing now than several months ago. Atorvastatin has been stopped for a month because she was losing weight and had a reduced appetite. Her appetite has improved. This atorvastatin discontinuation occurred after her headaches worsened. She reports no other medication changes. >>>>>>>>>>>>>>>>>>>>A [facility] 2021 neurology follow-up:After May 20, 2021 neurology follow-up encounter, she started propranolol 10 mg tablets, 1/2 tablet twice a day, ~10 AM, ~5:30 PM. She has no side effects. Her headache is significantly although still only partially better. It is never all day anymore. There is no more vision symptomatology. 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 It occurs about every other day, usually in the evening as she is preparing dinner. It goes away shortly after she takes her 5:30 PM propranolol dose. Her atorvastatin has been changed from 20 mg down to 15 mg because of GI side effects, she reports. Otherwise, there are no medication changes. She continues to have tingling in her left hand. It seems worse. She is also dropping things still and her left hand feels weak. Presenting symptomatology relating to October 30, 2020 stroke and persistent post stroke symptomatology is reviewed from initial neurology consultation, April 29, 2021: In the beginning of October, she had onset of a severe right-sided migraine. This has happened before and in itself was therefore painful but not unusual. She soon had onset of new symptoms, however, including blurred and sometimes double vision, and slurred speech. Her noticed word finding difficulties and dysarthria. She presented for hospital admission October 30, 2020, 6 days after symptom onset and stroke was diagnosed. Aspirin 81 mg was started and atorvastatin 80 mg was started. At some point after hospitalization, she began noticing an additional symptom, tingling in the front more than the back of the whole of her left hand and dropping things with her left hand. The left hand has not felt weak. Physical therapy, speech therapy and Occupational Therapy were ordered after hospital discharge. She has been able to obtain none of these services because she has not been able to find any in network providers for these services. She was having nausea and reduced appetite. This improved partially with reduction of atorvastatin which is now 20 mg daily. Heart monitoring has been done for 2 weeks and was unrevealing. Her main persistent symptoms bothering her include exhaustion, losing words a nd jumbling words when she is more tired, poor memory and worsened mood. Her difficulty with words has improved a little since a few days after the stroke; other symptoms have not improved at all. Her exhaustion is such that she can pursue an activity such as laundry for 60 minutes or at most 90 minutes after which she needs to rest. When she is tired, the improvement that she notices when well rested with her expressive speech regresses back to as bad as it was a few days after the stroke. When she has a focused conversation with her on a subject of mutual interest, she forgets pertinent details after only 15 minutes. Her mood is irritated and agitated. She has little motivation. Her finds her easily especially when faced her post stroke symptomatology. Finally, her right-sided migraines which were infrequent before the stroke, less than once a month, are now occurring 2 or 3 times per week. Is more frequent and bothersome than before her stroke. Angel Tobin MD [address] [place] [address], [phone], [facility] 04/06/2023 10:44:31 05/31/2023 text/html Follow up for persisting symptoms status post October 30, 2020 stroke, headache most notably., with Michael Antonio, her . >>>>>>>>>>>>>>>>>>>> May [facility] April 06, 2023 neurology follow-up encounter, she stopped propranolol, which had been 10 mg tablets: 1/2 tablet twice a day, for several days to a week. Headaches on the days that she does not take Nurtec (75 mg every other morning prescription) intensified markedly. Headaches have been unchanged on the days she takes Nurtec o nly about 20% of these days and less severe than previously. She restarted propranolol, but only on the days that she does not take Nurtec, and only a single 5 mg dose, which she takes around dinnertime, around 6 PM. Headaches on these days tend to start around 2:30 PM and get bad shortly after dinner, ~630 to 7 PM.Episodes of extending her head, sometimes seeing black, but continued. She provides additional details: These episodes only happen on the days that she does not take Nurtec. Additionally, they only happen in the evening, correlating when her headaches get bad. They were happening much more frequently on these evenings when she was completely off propranolol for several days to week. Since she has restarted propranolol on the days that she does not take Nurtec, episodes of extending her head and seeing black continue but less frequently. >>>>>>>>>>>>>>>>>>>>[facility] 2022Since January 09, 2023 neurology follow-up encounter, Nurtec 75 mg every other morning for migraine prevention has been approved and she has continued on Nurtec without any side effects. Headaches continue better but not resolved. Are those that she takes Nurtec. She has headaches only about 20% of these days and it is less severe than previously s he can proceed with her daily activities. On the in between days, headache occurs about 50% of the time and is more severe. She still can continue with daily activities but she has to push through them.She continues to have light and sound sensitivity and light and sound trigger headaches. This has occurred at physical therapy. They have not been able to dim the light or stop the music which is too loud for her. Because of these issues in part, she has stopped physical therapy. She continues the home exercises for the tightness in her left upper quadrant secondary to poststroke past historyShe continues on propranolol 10 mg tablets, 1/2 tablet twice a day. She finds them hard to cut. In recent times, if she looks up, extending her head, she sometimes sees black. Separately, she has once almost fainted. >>>>>>>>>>>>>>>>>>>> January 09, 2023Since October 18, 2022 neurology follow-up encounter, has been approved by insurance and she thus has transitioned from samples to prescription Nurtec 75 mg every other day. Her headaches remain only once a day since transitioning from daily after September 27, 2022 starting Nurtec every day. At that time, she could not tell if they were milder when they occurred. Now she can be more definitive: They are more mild, 5/10 instead of 10/10 intense previously. They started in the evening as her headaches tend to do.Meanwhile, she has been bothered by tingling throughout her left upper extremity residual from her stroke. It is continuous but seems more extended proximally when it is cold. She also notes chronic pain in the left chest and shoulder and upper back since the stroke. >>>>>>>>>>>>>>>>>>>>F ebruary fter September 27, 2022 neurology encounter, she took a sample of Nurtec 75 mg every other day, eight samples across 16 days. She remained on propranolol 5 mg twice a day. Headaches transformed from daily and often severe to about 50% of the time. She cannot say whether the residual headaches or any milder when they occurred. She did not take baseline Fioricet prescribed by primary care as she was unsure if she could combine the medications. Headaches start later in the day with or without the Ubrelvy.Over the last 5 days, since samples of Nurtec ran out, headaches have reverted to baseline on propranolol of daily headache, often severe. >>>>>>>>>>>>>>>>>>>>F ebruary 2022 neurology follow-up:After November 30, 2021 neurology follow-up encounter, up until near the end of 2021, headaches continued unchanged, partially improved on propranolol as discussed November 30, not every day anymore, less severe, usually late in the day and going away with the second dose of propranolol.At some point over the months she progressed from the 5 mg every day (10 mg tablets, each dose 0.5 tablet) up to one full tablet every day. She cannot say when. This is part of my problem, I forget. She takes her medications independently so her does not have an idea of when this change occurred. Sometime toward the end of July, her headaches began to worsen. They became every day again and more severe. During the first week of August she had a bad headache, again one that made her dysarthria worse as was occurring before she has started the propranolol. She is presented to the emergency room. She had imaging. She was told that there was not a new stroke or any new worrisome findings on the imaging or generally. Her blood pressure was quite low. I told her to stop the propranolol.Instead, since, she has cut the propranolol back down to 0.5 tablet (5 mg) twice a day. Her headaches have not gotten better. They remain daily and more severe than they were during the first several months that she was on propranolol 5 mg twice a day. She still has low blood pressure, measured at home as 90/58. She has no dizziness. She cannot say if she has mental slowing above and beyond the forgetfulness that she attributes to the stroke. Her thinks that there might be more mental slowing now than several months ago. Atorvastatin has been stopped for a month because she was losing weight and had a reduced appetite. Her appetite has improved. This atorvastatin discontinuation occurred after her headaches worsened. She reports no other medication changes. >>>>>>>>>>>>>>>>>>>>A [facility] 2021 neurology follow-up:After May 20, 2021 neurology follow-up encounter, she started propranolol 10 mg tablets, 1/2 tablet twice a day, ~10 AM, ~5:30 PM. She has no side effects. Her headache is significantly although still only partially better. It is never all day anymore. There is no more vision symptomatology. 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 It occurs about every other day, usually in the evening as she is preparing dinner. It goes away shortly after she takes her 5:30 PM propranolol dose. Her atorvastatin has been changed from 20 mg down to 15 mg because of GI side effects, she reports. Otherwise, there are no medication changes. She continues to have tingling in her left hand. It seems worse. She is also dropping things still and her left hand feels weak. Presenting symptomatology relating to October 30, 2020 stroke and persistent post stroke symptomatology is reviewed from initial neurology consultation, April 29, 2021: In the beginning of October, she had onset of a severe right-sided migraine. This has happened before and in itself was therefore painful but not unusual. She soon had onset of new symptoms, however, including blurred and sometimes double vision, and slurred speech. Her noticed word finding difficulties and dysarthria. She presented for hospital admission October 30, 2020, 6 days after symptom onset and stroke was diagnosed. Aspirin 81 mg was started and atorvastatin 80 mg was started. At some point after hospitalization, she began noticing an additional symptom, tingling in the front more than the back of the whole of her left hand and dropping things with her left hand. The left hand has not felt weak. Physical therapy, speech therapy and Occupational Therapy were ordered after hospital discharge. She has been able to obtain none of these services because she has not been able to find any in network providers for these services. She was having nausea and reduced appetite. This improved partially with reduction of atorvastatin which is now 20 mg daily. Heart monitoring has been done for 2 weeks and was unrevealing. Her main persistent symptoms bothering her include exhaustion, losing words a nd jumbling words when she is more tired, poor memory and worsened mood. Her difficulty with words has improved a little since a few days after the stroke; other symptoms have not improved at all. Her exhaustion is such that she can pursue an activity such as laundry for 60 minutes or at most 90 minutes after which she needs to rest. When she is tired, the improvement that she notices when well rested with her expressive speech regresses back to as bad as it was a few days after the stroke. When she has a focused conversation with her on a subject of mutual interest, she forgets pertinent details after only 15 minutes. Her mood is irritated and agitated. She has little motivation. Her finds her easily especially when faced her post stroke symptomatology. Finally, her right-sided migraines which were infrequent before the stroke, less than once a month, are now occurring 2 or 3 times per week. Is more frequent and bothersome than before her stroke. Angel Tobin MD [address] [place] [address] [place], [address], [facility] Neurology [facility] 05/31/2023 16:16:03 OBGyn Episode No OBEpisode recorded.
--- OUTSIDE RECORDS SUMMARY | 2025-07-02 14:25 | XMS_ITS | Clinical Summary ---
Author Organization [facility] [place] [address] Phone Care Team Providers Care Fingernail Sculptor Name Role Phone Jairo Patel DO Primary Care Provider [phone] Allergies Active Allergy Reactions Criticality Noted Date Comments Atorvastatin 06/17/2025 Clarithromycin 06/17/2025 Hydromorphone Unknown 08/03/2023 Lactose Unknown 08/03/2023 Morphine Unknown 06/17/2024 Nitrofurantoin Unknown 08/03/2023 Oxycodone-Acetaminophen Unknown 08/03/2023 Penicillins Unknown 08/03/2023 Medications vibegron (Gemtesa) 75 mg tablet tablet Take 1 tablet (75 mg total) by mouth 1 (one) time each day. Active aspirin 81 mg EC tablet Take 1 tablet (81 mg total) by mouth 1 (one) time each day. Active loratadine (CLARITIN) 10 mg tablet Take 1 tablet (10 mg total) by mouth 1 (one) time each day. Active propranoloL (INDERAL) 20 mg tablet Take 1 tablet (20 mg total) by mouth 3 (three) times a day. Active alendronate (FOSAMAX) 70 mg tablet Take 1 tablet (70 mg total) by mouth every 7 (seven) days. Take in the morning with a full glass of water, on an empty stomach, and do not take anything else by mouth or lie down for the next 30 min. Active baclofen (LIORESAL) 20 mg tablet Take by mouth 2 (two) times a day. Active pentosan polysulfate (ELMIRON) 100 mg capsule Take 1 capsule (100 mg total) by mouth 3 (three) times a day before meals. Active Encounters Date Type Department Care Team Description 06/17/2025 1:45 PM EDT Office Visit [facility] Hematology Oncology [address] [place] [address] Justus Byrnes MD Macrocytosis (Primary Dx) 06/10/[address] [facility] Hematology Oncology [address] [place] [address] Justus Byrnes MD 05/27/2025 Lab Requisition [facility] - Main Lab [address] [facility] [place] [address] Dangelo Shields MD Benign essential [...] Sign Reading Time Taken Comments Blood Pressure 112/69 06/17/2025 1:53 PM EDT Pulse 89 06/17/2025 1:53 PM EDT Temperature 37.1 C (98.7 F) 06/17/2025 1:53 PM EDT Respiratory Rate - - Oxygen Saturation 100% 06/17/2025 1:53 PM EDT Inhaled Oxygen Concentration - - Weight 38.6 kg (85 lb) 06/17/2025 1:53 PM EDT Height 167.6 cm (5' 6 ) 06/17/2025 1:53 PM EDT Body Mass Index 13.72 06/17/2025 1:53 PM EDT Plan of Treatment Health Maintenance [...] 07/24/2022 Depression Screening 08/21/2024 COVID-19 Vaccine ( season) 2025 10/08/2020 Cholesterol Screening (Lipid Panel) 11/06/2029 11/06/2024 RSV Immunization Adult Patients (1 - 1-dose 75+ series) 2041 Zoster Vaccines Completed 08/05/2023, 04/30/2023 Influenza Vaccine Completed 05/24/2025, , 05/26/2023, Additional history exists HIB Vaccines Aged Out No longer eligi [...] Procedure Name Priority Date/Time Associated Diagnosis Comments CBC WITH AUTO DIFFERENTIAL Routine 06/17/2025 2:19 PM EDT Macrocytosis VITAMIN B12 AND FOLATE Routine 2:19 PM EDT Macrocytosis CBC AND DIFFERENTIAL Routine 06/17/2025 2:19 PM EDT Macrocytosis NON-GYNECOLOGIC CYTOLOGY Routine 05/20/2025 12:00 AM EDT Benign essential microscopic hematuria BILIRUBIN DUPLICATE PROCEDURE TO ORDER Routine 05/16/2025 [...] Recently Relevant to Health Maintenance Results * (ABNORMAL) Vitamin B12 and folate (06/17/2025 2:19 PM EDT) [facility] Vitamin B-12 508 250 - 900 pcg/mL LAB CHEMISTRY METHOD 06/17/2025 5:26 PM EDT [facility] Folate 18.3(H) 2.8 - 17.0 ng/ml LAB CHEMISTRY METHOD 06/17/2025 5:26 PM EDT [facility] Blood Venous blood specimen / Unknown Venipuncture / Unknown 06/17/2025 2:19 PM EDT 06/17/2025 4:35 PM EDT [facility] Jaime Byrnes MD LAB BLOOD ORDERABLES Final R esult [facility] [address] [place] [address], * (ABNORMAL) CBC auto differential (06/17/2025 2:19 PM EDT) Only the most recent of2 resultswithin the time period is included. WBC 5.5 4.8 - 10.8 K/mcL LAB HEMETOLOGY METHOD 06/17/2025 4:50 PM EDT [facility] RBC 3.80 3.80 - 4.80 M/mcL LAB HEMETOLOGY METHOD 06/17/2025 4:50 PM EDT [facility] Hemoglobin 13.0 11.5 - 16.0 g/dL LAB HEMETOLOGY METHOD 06/17/2025 4:50 PM EDT [facility] Hematocrit 39.1 35.0 - 47.0 % LAB HEMETOLOGY METHOD 06/17/2025 4:50 PM EDT [facility] MCV 102.6(H) 79.0 - 98.0 FL LAB HEMETOLOGY METHOD 06/17/2025 4:50 PM EDT [facility] MCH 34.1(H) 27.0 - 32.0 pcg LAB HEMETOLOGY METHOD 06/17/2025 4:50 PM EDT [facility] MCHC 33.2 32.0 - 37.0 g/dL LAB HEMETOLOGY METHOD 06/17/2025 4:50 PM EDT [facility] RDW 12.3 11.0 - 15.0 % LAB HEMETOLOGY METHOD 06/17/2025 4:50 PM EDT [facility] Platelets 287 130 - 400 K/mcL LAB HEMETOLOGY METHOD 06/17/2025 4:50 PM EDT [facility] MPV 10.4 7.0 - 11.0 FL LAB HEMETOLOGY METHOD 06/17/2025 4:50 PM EDT [facility] NRBC 0.0 <1.0 % LAB HEMETOLOGY METHOD 06/17/2025 4:50 PM EDT [facility] NRBC Absolute 0.00 <0.10 K/mcL LAB HEMETOLOGY METHOD 06/17/2025 4:50 PM EDT [facility] Neutrophils Relative 50.0 % LAB HEMETOLOGY METHOD 06/17/2025 4:50 PM EDT [facility] Lymphocytes Relative 38.0 % LAB HEMETOLOGY METHOD 06/17/2025 4:50 PM EDT [facility] Monocytes Relative 9.8 % LAB HEMETOLOGY METHOD 06/17/2025 4:50 PM T [facility] Eosinophils Relative 1.5 % LAB HEMETOLOGY METHOD 06/17/2025 4:50 PM EDT [facility] Basophils Relative 0.5 % LAB HEMETOLOGY METHOD 06/17/2025 4:50 PM EDT [facility] Immature Granulocytes Relative 0.2 % LAB HEMETOLOGY METHOD 06/17/2025 4:50 PM [facility] Neutrophils Absolute 2.75 1.50 - 7.00 K/mcL LAB HEMETOLOGY METHOD 06/17/2025 4:50 PM EDT [facility] Lymphocytes Absolute 2.09 1.00 - 5.00 K/mcL LAB HEMETOLOGY METHOD 06/17/2025 4:50 PM EDT [facility] Monocytes Absolute 0.54 0.20 - 1.00 K/mcL LAB HEMETOLOGY METHOD 06/17/2025 4:50 PM EDT [facility] Eosinophils Absolute 0.08 0.00 - 0.50 K/mcL LAB HEMETOLOGY METHOD 06/17/2025 4:50 PM EDT [facility] Basophils Absolute 0.03 0.00 - 0.20 K/[facility] LAB HEMETOLOGY METHOD 06/17/2025 4:50 PM EDT [facility] Immature Granulocytes Absolute 0.01 0.00 - 0.03 K/[facility] LAB HEMETOLOGY METHOD 06/17/2025 4:50 PM EDT [facility] Blood Venous blood specimen / Unknown Venipuncture / Unknown 06/17/2025 2:19 PM EDT 06/17/2025 4:38 PM EDT us Justus Byrnes MD LAB BLOOD ORDERABLES Final R esult [facility] [address] [place] [address], [place] [phone] * Non-gynecologic cytology (05/20/2025 12:00 AM EDT) Addendum Results of UroVysion fluorescence in situ hybridization (FISH) testing: Although FISH was performed, insufficient non-obscured hybridization signals are present for evaluation and interpretation. 06/11/2025 2:10 PM EDT [facility] Addendum electronically signed by Eric Crews MD on 06/11/2025 at 1410 EDT Final Diagnosis A. Urine, Voided, [id number]: Negative for high grade urothelial carcinoma. Acute inflammatory cells are present. Note: UroVysion testing to follow. 06/11/2025 2:10 PM EDT [facility] at 1451 EDT Specimen A Adequacy Satisfactory for evaluation 06/11/2025 2:10 PM EDT [facility] Clinical Information Benign essential microscopic hematuria R31.1 Urine Cytology/FISH (now) 06/11/2025 2:10 PM EDT [facility] Gross Description A. Urine, Voided, [id number]: Received one ThinPrep slide for cytology and one ThinPrep slide for UroVysion FISH 06/11/2025 2:10 PM EDT [facility] Disclaimer Unless otherwise specified, all tissue is 10% NB formalin fixed and paraffin embedded. Technical pathology services provided by [facility] at [address], [place] [address] (CLIA #[id number]/Edwina Ferrell MD, Stenographer Secretary) 06/11/2025 2:10 PM EDT [facility] Urine Urine specimen from urethra / Unknown 05/20/2025 05/27/2025 10:49 AM EDT Dangelo Shields MD LAB CYTOLOGY ORDERABLES E dited Result - Final [facility] [address] [place] [address], [place] [phone] * Bilirubin duplicate procedure to order (05/16/2025 9:25 AM EDT) Total Bilirubin 0.4 0.0 - 1.4 mg/dL LAB CHEMISTRY METHOD 05/16/2025 2:07 PM EDT [facility] Bilirubin, Direct 0.1 0.0 - 0.3 mg/dL LAB CHEMISTRY METHOD 05/16/2025 2:07 PM EDT [facility] Bilirubin, Indirect 0.3 0.0 - 1.1 mg/dL LAB CHEMISTRY METHOD 05/16/2025 2:07 PM EDT [facility] Blood Venous blood specimen / Unknown Venipuncture / Unknown 05/16/2025 9:25 AM EDT 05/16/2025 9:25 AM EDT Jairo Patel DO LAB BLOOD ORDERABLES Final Re sult [facility] [address] [place] [address], [place] [phone] * (ABNORMAL) STEPHANI IFA with titer and pattern (05/16/2025 9:25 AM EDT) Pathologist [facility] STEPHANI Positive (A) Negative 05/19/2025 2:16 PM EDT [facility] Comment:STEPHANI performed by ind ireri immunofluorescence (IFA) using HEp-2 substrate. STEPHANI Pattern Homogene ous(A) (none) 05/19/2025 2:16 PM EDT [facility] Comment: May be Associated with SLE and drug-induced SLE. If clinical suspicion of SLE consider testing for anti-dsDNA and anti-Sm. If established SLE to assess disease activity and/or prognosis, consider testing for anti-dsDNA. If clinical suspicion of drug induced LE no further testing is indicated. Titer 1:640(A) <1:160 05/19/2025 2:16 PM EDT [facility] Blood Venous blood specimen / Unknown Venipuncture / Unknown 05/16/2025 9:25 AM EDT 05/16/2025 9:25 AM EDT [facility] LAB BLOOD ORDERABLES Final Re sult Performing Organization Address City/[facility]/ZIP Co de Phone Number [facility] [address] [place] [address], * Thyroid stimulating hormone (05/16/2025 9:25 AM EDT) [facility] TSH 1.94 0.40 - 4.00 mcIU/mL LAB CHEMISTRY METHOD 05/16/2025 2:46 PM EDT [facility] Blood Venous blood specimen / Unknown Venipuncture / Unknown 05/16/2025 9:25 AM EDT 05/16/2025 9:25 AM EDT [facility] LAB BLOOD ORDERABLES Final Re sult [facility] [address] [place] [address], * Lipase (05/16/2025 9:25 AM EDT) Pathologist [facility] Lipase 50 13 - 75 unit/L LAB CHEMISTRY METHOD 05/16/2025 2:07 PM EDT [facility] Blood Venous blood specimen / Unknown Venipuncture / Unknown 05/16/2025 9:25 AM EDT 05/16/2025 9:25 AM EDT [facility] LAB BLOOD ORDERABLES Final Re sult Performing Organization Address [facility]/ZIP Co de Phone Number [facility] [address] [place] [address], [place] [phone] * Vitamin B12 (05/16/2025 9:25 AM EDT) Only the most recent of2 resultswithin the time period is included. [facility] Vitamin B-12 484 250 - 900 pcg/mL LAB CHEMISTRY METHOD 05/16/2025 2:07 PM EDT [facility] Blood Venous blood specimen / Unknown Venipuncture / Unknown 05/16/2025 9:25 AM EDT 05/16/2025 9:25 AM EDT [facility] LAB BLOOD ORDERABLES Final Re sult [facility] [address] [place] [address], [place] [phone] * Amylase (05/16/2025 9:25 AM EDT) [facility] Amylase 99 25 - 115 unit/L LAB CHEMISTRY METHOD 05/16/2025 2:07 PM EDT [facility] Blood Venous blood specimen / Unknown Venipuncture / Unknown 05/16/2025 9:25 AM EDT 05/16/2025 9:25 AM EDT us Jairo Patel DO LAB BLOOD ORDERABLES Final Re sult [facility] [address] [place] [address], [place] [phone] * (ABNORMAL) Comprehensive metabolic panel (05/16/2025 9:25 AM EDT) Pathologist [facility] Sodium 138 133 - 145 mmol/L LAB CHEMISTRY METHOD 05/16/2025 2:07 PM [facility] Potassium 4.0 3.5 - 5.5 mmol/L LAB CHEMISTRY METHOD 05/16/2025 2:07 PM [facility] Chloride 106 96 - 110 mmol/L LAB CHEMISTRY METHOD 05/16/2025 2:07 PM [facility] CO2 27 21 - 32 mmol/L LAB CHEMISTRY METHOD 05/16/2025 2:07 PM [facility] Anion Gap 5 3 - 11 LAB CHEMISTRY METHOD 05/16/2025 2:07 PM [facility] Glucose 82 70 - 100 mg/dL LAB CHEMISTRY METHOD 05/16/2025 2:07 PM [facility] BUN 15 5 - 25 mg/dL LAB CHEMISTRY METHOD 05/16/2025 2:07 PM [facility] Creatinine 0.78 0.50 - 1.10 mg/dL LAB CHEMISTRY METHOD 05/16/2025 2:07 PM [facility] eGFR 88 >=60 mL/min/1. 73m2 LAB CHEMISTRY METHOD 05/16/2025 2:07 PM [facility] Comment:Calculation based on the Chronic Kidney Disease Epidemiology Collaboration (CKD-EPI) equation refit without adjustment for race. BUN/Creatinine Ratio 19.2 LAB CHEMISTRY METHOD 05/16/2025 2:07 PM [facility] Calcium 8.9 8.5 - 10.5 mg/dL LAB CHEMISTRY METHOD 05/16/2025 2:07 PM [facility] AST (SGOT) 22 10 - 42 unit/L LAB CHEMISTRY METHOD 05/16/2025 2:07 PM [facility] ALT (SGPT) 30 10 - 60 unit/L LAB CHEMISTRY METHOD 05/16/2025 2:07 PM [facility] Alkaline Phosphatase 39(L) 42 - 121 unit/L LAB CHEMISTRY METHOD 05/16/2025 2:07 PM [facility] Total Protein 6.7 6.0 - 8.0 g/dL LAB CHEMISTRY METHOD 05/16/2025 2:07 PM [facility] Albumin 4.1 3.2 - 5.0 g/dL LAB CHEMISTRY METHOD 05/16/2025 2:07 PM [facility] Total Bilirubin 0.4 0.0 - 1.4 mg/dL LAB CHEMISTRY METHOD 05/16/2025 2:07 PM [facility] Blood Venous blood specimen / Unknown Venipuncture / Unknown 05/16/2025 9:25 AM EDT 05/16/2025 9:25 AM EDT us Jairo Patel DO LAB BLOOD ORDERABLES Final Re sult [facility] [address] [place] [address], * Lipid panel with reflex to direct LDL (11/06/2024 11:46 AM EDT) Cholesterol 183 0 - 200 mg/dL LAB CHEMISTRY METHOD 11/06/2024 4:35 PM T [facility] Triglycerides 129 0 - 150 mg/dL LAB CHEMISTRY METHOD 11/06/2024 4:35 PM EDT [facility] HDL 63 >=40 mg/dL LAB CHEMISTRY METHOD 11/06/2024 4:35 PM EDT [facility] LDL Calculated 94 0 - 100 mg/dL LAB CHEMISTRY METHOD 11/06/2024 4:35 PM EDT [facility] VLDL Cholesterol Roosevelt 25.8 mg/dL LAB CHEMISTRY METHOD 11/06/2024 4:35 PM EDT [facility] Non HDL Chol. (LDL+VLDL) 120 <145 mg/dL LAB CHEMISTRY METHOD 11/06/2024 4:35 PM EDT [facility] Chol/HDL Ratio 2.9 0.0 - 4.4 LAB CHEMISTRY METHOD 11/06/2024 4:35 PM EDT [facility] Blood Venous blood specimen / Unknown Venipuncture / Unknown 11/06/2024 11:46 AM EDT 11/06/2024 11:46 AM EDT us Jairo Patel DO LAB BLOOD ORDERABLES Final Re sult [facility] [address] [place] [address], from Last 3 Months or Most Recently Relevant to Health Maintenance Insurance MEDICARE [facility] Care Teams Fingernail Sculptor Relationship Specialty Start Date End Date Jairo Patel DO [address] [place] [phone] PCP - General Internal Medicine 03/27/13
--- OUTSIDE RECORDS SUMMARY | 2025-07-02 14:25 | XMS_ITS | Clinical Summary ---
Author Organization [facility] Address [address] [place] [address] Care Team Providers Care Manager Logistic Name Role Phone Jairo Patel Primary Care Provider [phone] Allergies Active Allergy Reactions Criticality Noted Date [...] 2025 10/08/2020 Influenza Vaccine (#1) 2025 , 06/14/2022, 08/19/2021, Additional history exists Insurance [facility] OUT OF STATE PPO MEDICARE Care Teams Manager Logistic Relationship Specialty Start Date End Date Jairo Patel [address] [place] [id number] PCP - General Internal Medicine 06/08/23
--- OUTSIDE RECORDS SUMMARY | 2025-07-02 14:25 | XMS_ITS | Encounter Summary ---
Author Organization [facility] Address [address] [place] [address] Care Team Providers Care Plumbing Assembler Name Role Phone Jairo Patel DO Primary Care Provider [phone] Encounter Details Date Type Department Care Team (Late st Contact Info) Description 05/27/2025 Lab Requisition [facility] - Main Lab [address] [facility] [place] [address] Dangelo Shields MD [address] [place] [address] Benign essential microscopic hematuria Social History Tobacco [...] Procedure Name Priority Date/Time Associated Diagnosis Comments NON-GYNECOLOGIC CYTOLOGY Routine 05/20/2025 12:00 AM EDT Benign essential microscopic hematuria documented in this encounter Results * Non-gynecologic cytology (05/20/2025 12:00 AM EDT) Addendum Results of UroVysion fluorescence in situ hybridization (FISH) testing: Although FISH was performed, insufficient non-obscured hybridization signals are present for evaluation and interpretation. 06/11/2025 2:10 PM EDT [facility] Addendum electronically signed by Eric Crews MD on 06/11/2025 at 1410 EDT Final Diagnosis A. Urine, Voided, [id number]: Negative for high grade urothelial carcinoma. Acute inflammatory cells are present. Note: UroVysion testing to follow. 06/11/2025 2:10 PM EDT [facility] at 1451 EDT Specimen A Adequacy Satisfactory for evaluation 06/11/2025 2:10 PM EDT [facility] Clinical Information Benign essential microscopic hematuria R31.1 Urine Cytology/FISH (now) 06/11/2025 2:10 PM EDT [facility] Gross Description A. Urine, Voided, [id number]: Received one ThinPrep slide for cytology and one ThinPrep slide for UroVysion FISH 06/11/2025 2:10 PM EDT [facility] Disclaimer Unless otherwise specified, all tissue is 10% NB formalin fixed and paraffin embedded. Technical pathology services provided by [facility] at [address], [place] [address] (CLIA #[id number]/Edwina Ferrell MD, Medical Asst) 06/11/2025 2:10 PM EDT [facility] Urine Urine specimen from urethra / Unknown 05/20/2025 05/27/2025 10:49 AM EDT us Dangelo Shields MD LAB CYTOLOGY ORDERABLES E dited Result - Final [id number] [address] [place] [address], documented in this encounter Visit Diagnoses Diagnosis Benign essential microscopic hematuria documented in this encounter Care Teams Plumbing Assembler Relationship Specialty Start Date End Date Jairo Patel DO [address] [place] [phone] PCP - General Internal Medicine 03/27/13 documented as of this encounter
== END 2025-07-02 11:35 | disposition home or self-care (01) ==
LOC: HO.HMGAL 11:35
PROVIDERS: PCP Internal Medicine; Visit Provider Registered Nurse Emergency
DX: J30.89 Other allergic rhinitis (principal)
CPT/HCPCS: 95117; 95165

== ENCOUNTER 2025-07-28 10:55 | Outpatient (AMB) | payer BC, MEDICARE, SELFPAY | END 2025-07-28 10:55 | disposition home or self-care (01) | LOC: HO.HMGAL 10:55 | PROVIDERS: PCP Internal Medicine; Visit Provider Registered Nurse Emergency | DX: J30.89 Other allergic rhinitis (principal) | CPT/HCPCS: 95117; 95165 ==